=== PATIENT | male | born 2000 | race Caucasian/White ===

== ENCOUNTER 2023-07-28 14:05 | Emergency (ER) | payer BC, SELFPAY ==
[2023-07-28 14:09] VITALS: BP 136/85; PULSE 87; RESP 20; TEMP 37.1; O2SAT 100
--- NOTE | 2023-07-28 16:12 | ED.GENADULT ---
HPI - General Adult General Chief complaint: Unspecified Stated complaint: Pain to right side Time Seen by Provider: 07/28/23 15:55 History of Present Illness HPI narrative: 23-year-old male presenting to the emergency department for evaluation right flank pain. Patient reports that he had a prior workup including imaging and labs that showed nothing was wrong. Patient states the symptoms have been going on for the last few months. Patient felt that his right flank was more swollen today, he called his primary care physician and was deferred to the emergency department for evaluation. Related Data Allergies Allergy/AdvReac Type Severity Reaction Status Date / Time No Known Allergies Allergy Verified 07/28/23 14:07 Review of Systems Review of Systems: All systems reviewed & are unremarkable except as noted in HPI and below Exam Narrative: APPEARANCE: Well appearing, no pain, no distress, well-nourished. HEAD: normocephalic, atraumatic. EYES: PERRLA/EOMI, conjunctivae clear. NOSE: Normal no drainage EARS:TMS clear with good light reflex. THROAT: Pharynx clear, no exudate. NECK: Supple. No adenopathy, no masses. RESPIRATORY: Airway patent, respirations nonlabored. Clear to auscultation bilaterally, no rales, rhonchi, wheezing. CARDIOVASCULAR: Regular rate and rhythm without murmurs rubs or gallops. ABDOMINAL: Soft, nontender, nondistended, normal bowel sounds. no right CVA a right upper quadrant tenderness to palpation MUSCULOSKELETAL: Moves all extremities. Strength/ROM intact, No edema, No calf tenderness. NEURO: Alert. Cranial nerves II through XII intact. Grossly intact SKIN: Warm, dry. Normal Color Course Course Emergency Course: 23-year-old male presents the emergency department for evaluation of right flank pain. Patient has had previous imaging that showed no acute abnormality. Patient is afebrile with no leukocytosis and a stable hemoglobin. Patient has no significant abnormalities on his CMP. UA shows no evidence of infection. Patient was encouraged of close follow-up with his primary care physician for additional outpatient workup. Vital Signs Vital signs: Vital Signs Temperature 98.7 F 07/28/23 14:09 Pulse Rate 87 07/28/23 14:09 Respiratory Rate 20 07/28/23 14:09 Blood Pressure 136/85 07/28/23 14:09 Pulse Oximetry 100 07/28/23 14:09 Oxygen Delivery Room Air 12/07/23 14:09 Temperature 98.7 F 07/28/23 14:09 Pulse Rate 87 07/28/23 14:09 Respiratory Rate 20 07/28/23 14:09 Blood Pressure 136/85 07/28/23 14:09 Pulse Oximetry 100 07/28/23 14:09 Oxygen Delivery Room Air 07/28/23 14:09 Medical Decision Making Differential Diagnosis Differential Diagnosis: biliary colic, UTI, kidney stone, muscular strain Vital Signs Vital Signs: Vital Signs Temperature 98.7 F 07/28/23 14:09 Pulse Rate 87 07/28/23 14:09 Respiratory Rate 20 07/28/23 14:09 Blood Pressure 136/85 07/28/23 14:09 Pulse Oximetry 100 07/28/23 14:09 Oxygen Delivery Room Air 07/28/23 14:09 Temperature 98.7 F 07/28/23 14:09 Pulse Rate 87 07/28/23 14:09 Respiratory Rate 20 07/28/23 14:09 Blood Pressure 136/85 07/28/23 14:09 Pulse Oximetry 100 07/28/23 14:09 Oxygen Delivery Room Air 07/28/23 14:09 Lab Data Lab results reviewed: Yes I reviewed the patient's lab results. 07/28/23 16:23 07/28/23 16:23 Labs: Lab Results 07/28/23 07/28/23 Range/Units 16:06 16:23 WBC 5.3 (4.5-10.0) K/mm3 RBC 5.92 (4.6-6.20) M/mm3 Hgb 16.0 (14.0-18.0) g/dL Hct 48.8 (42.0-52.0) % MCV 82.4 (80-100) fl MCH 27.0 (26-34) pg MCHC 32.8 (32-36) g/dl RDW 12.2 (11.5-14.5) % Plt Count 179 (150-375) k/mm3 MPV 11.7 H (7.4-10.4) fl Immature Gran % (Auto) 0.0 (0-0.5) % Neut % (Auto) 65.9 (45.5-73.1) % Lymph % (Auto) 24.5 (18.3-44.2) % [place] % (Auto) 6.7 (2.6-8.5) % Eos % (Auto)
[2023-07-28 16:17] LABS: Appearance Urine Clear (Clear); Bilirubin Urine Negative (Negative); Blood Urine Negative (Negative); Color Urine Yellow (Yellow); Glucose Urine UA Negative (Negative); Ketones Urine Negative (Negative); Leukocyte Esterase Ur Negative LEU/UL (Negative); Nitrate Urine Negative (Negative); Protein Urine Negative (Negative); Urobilinogen Urine 0.2 mg/dL (<2.0)
[2023-07-28 16:24] LABS: Add Urine Microscopic? NO
[2023-07-28 16:57] LABS: Alanine Aminotransferase 63 U/L (6-50); Albumin Level 5.4 g/dL (3.5-5.1); Alkaline Phosphatase 97 U/L (38-126); Anion Gap 11 mmol/L (8-16); Aspartate Amino Transferase 43 U/L (17-59); Bilirubin,Total 0.7 mg/dL (0.2-1.3); Blood Urea Nitrogen 18 mg/dL (9-20); Calcium 9.8 mg/dL (8.4-10.2); Carbon Dioxide 27 mmol/L (22-30); Chloride 103 mmol/L (98-107); Estimated CRCL calculation 119 ml/min; Estimated Glomerular Filt Rate > 60; Glucose 91 mg/dL (65-110); Lipase 89 U/L (23-300); Sodium 141 mmol/L (137-145)
[2023-07-28 17:03] LABS: Basophils Percent Auto 0.7 % (0.2-1.2); Eosinophils Absolute Auto 0.1 K/mm3 (0-0.3); Eosinophils Percent Auto 2.2 % (0-4.4); Hematocrit 48.8 % (42.0-52.0); Lymphocytes Absolute Auto 1.31 K/mm3 (0.9-3.2); Lymphocytes Percent Auto 24.5 % (18.3-44.2); Mean Corpuscular HGB Conc 32.8 g/dl (32-36); Mean Corpuscular Volume 82.4 fl (80-100); Mean Platelet Volume 11.7 fl (7.4-10.4); Monocytes Absolute Auto 0.4 K/mm3 (0.1-0.6); Monocytes Percent Auto 6.7 % (2.6-8.5); Neutrophils Absolute Auto 3.5 K/mm3 (1.3-6.7); Neutrophils Percent Auto 65.9 % (45.5-73.1); Platelet Count Result 179 k/mm3 (150-375); Red Blood Count 5.92 M/mm3 (4.6-6.20); Red Cell Distribution Width 12.2 % (11.5-14.5); White Blood Count 5.3 K/mm3 (4.5-10.0)
== END 2023-07-28 17:38 | disposition home or self-care (01) ==
PROVIDERS: Emergency Medicine; Emergency Provider Emergency Medicine
DX: R10.9 Unspecified abdominal pain (principal)
CPT/HCPCS: 36415; 80053; 81003; 83690; 85025; 99283

== ENCOUNTER → 2023-08-31 08:44 | Outpatient (CLI) | payer BC, SELFPAY ==
--- NOTE | ~2023-08-31 | US_ITS ---
Abdominal Sonogram: Real-time sonographic imaging of the abdomen was performed. Clinical History: Abdominal pain Findings: The liver appears normal with no evidence of mass lesion or bile duct dilatation. Main por michaelle vein demonstrates normal direction of flow. The spleen is upper limits of normal in size without evidence of focal lesion. The gallbladder is well distended, and appears normal with no evidence of gallstone or wall thickening. The common bile duct measures 3 mm. The pancreas is obscured by bowel gas shadowing. The right kidney measures 9.7 cm in length and the left kidney measures 10.1 cm. The re is no hydronephrosis or renal calculus. Impression: No significant abnormality seen. Borderline splenomegaly. Reviewed, dictated and finalized at [facility]. NG [employer] Impression: No significant abnormality seen. Borderline splenomegaly.
== END ==
PROVIDERS: PCP Physician Assistant; Visit Provider Physician Assistant
DX: R10.9 Unspecified abdominal pain (principal)
CPT/HCPCS: 76700

== ENCOUNTER 2024-02-21 10:12 | Outpatient (CLI) | payer BC, SELFPAY ==
--- NOTE | ~2024-02-21 | XR_ITS ---
EXAMINATION: XR hip RT min 2V DATE: 02/21/2024 10:32 INDICATION: Right hip pain TECHNIQUE: Anteroposterior and frog-leg lateral views of the right hip were obtained. COMPARISON: None. FINDINGS: Bone alignment is normal. No fracture or suspected avascular necrosis. Right hip and bilateral sacroi liac joint spaces are normal. Sclerotic bone island at the right posterior iliac spine. IMPRESSION: 1. Sclerotic likely bone island at the right posterior iliac spine. Otherwise normal right hip radiog raphs. Reviewed, dictated and finalized at location B. IMPRESSION: 1. Sclerotic likely bone island at the right posterior iliac spine. Otherwise n ormal right hip radiographs.
--- NOTE | ~2024-02-21 | XR_ITS ---
EXAMINATION: XR knee RT 3V DATE: 02/21/2024 10:32 INDICATION: Right knee pain TECHNIQUE: Standing AP, lateral and sunrise views of the right knee were obtained COMPARISON: None. FINDINGS: Alignment is normal. No fracture. Joint spaces are normal with no erosions or osteophytosis. No join t effusion/layering lipohemarthrosis. Soft tissues are unremarkable. IMPRESSION: 1. Normal right knee radiographs. Reviewed, dictated and finalized at location B.
== END 2024-02-21 10:13 ==
PROVIDERS: PCP Physician Assistant; Visit Provider Physician Assistant
DX: M25.561 Pain in right knee (principal); M25.551 Pain in right hip
CPT/HCPCS: 73502; 73562

== ENCOUNTER 2024-05-23 09:54 | Outpatient (CLI) | payer BC, SELFPAY ==
--- NOTE | ~2024-05-23 | US_ITS ---
EXAMINATION: US_ABDRLQ_US DATE: 05/23/2024 10:11 INDICATION: Right lower quadrant abdominal pain. TECHNIQUE: Multiple grayscale and Doppler ultrasound images of the abdomen were obtained. COMPARISON: None FINDINGS: The appendix is not identified. IMPRESSION: 1. Appendix not identified. Reviewed, dictated and finalized at location A. IMPRESSION: 1. Appendix not identified.
== END 2024-05-23 09:55 | disposition home or self-care (01) ==
PROVIDERS: PCP Physician Assistant; Visit Provider Physician Assistant
DX: R10.9 Unspecified abdominal pain (principal)
CPT/HCPCS: 76705

== ENCOUNTER 2024-07-03 07:41 | Outpatient (CLI) | payer BC, SELFPAY ==
--- NOTE | ~2024-07-03 | CT_ITS ---
EXAMINATION: CT abdomen pelvis w con DATE: 07/03/2024 09:02 INDICATION: Right lower quadrant abdominal pain TECHNIQUE: Computed tomography (CT) of the abdomen and pelvis was performed with 100 mL Omnipaque-350 intravenous contrast. Automated exposure control and iterative reconstruction technique were employe d. The dose-length product was 551.84 mGy-cm. COMPARISON: None FINDINGS: Lung bases are clear. Heart size is normal. No pericardial or pleural effusion. Liver,, gallbladder, spleen, pancreas, bilateral adrenal glands and right kidney are normal. 1 cm cyst at the lower pole o f the left kidney. Bladder is normal. Bowels including the appendix are normal. No free intraperitone al gas or fluid. No pathologically enlarged abdominal or pelvic lymphadenopathy. Mild thoracolumbar l evoscoliosis with mild spondylosis. IMPRESSION: 1. No acute intra-abdominal/pelvic process. Specifically the gallbladder and appendix are normal. Reviewed, dictated and finalized at location B. WARDEN IMPRESSION: 1. No acute intra-abdominal/pelvic process. Specifically the gallbladder and ap pendix are normal.
== END 2024-07-03 07:42 | disposition home or self-care (01) ==
PROVIDERS: PCP Physician Assistant; Visit Provider Nurse Practitioner Family
DX: R10.31 Right lower quadrant pain (principal)
CPT/HCPCS: 74177; Q9967

== ENCOUNTER 2024-07-04 01:20 | Day surgery (SDC) | payer BC, SELFPAY ==
[2024-06-21 14:06] VITALS: BMI 27.6
[2024-07-04 11:50] VITALS: BP 133/82; PULSE 78; RESP 20; TEMP 36.7; O2SAT 100; BMI 27.6
[2024-07-04] MEDS: LACTATED RINGERS 1,000 ML 150 ML IV CONT (12:15)
--- NOTE | 2024-07-04 13:53 | P.PNAN_ITS ---
Anes - Initial Pre Proc Eval Procedure: Operation Date: 07/04/24 13:00 Proposed Procedures p Esophagogastroduodenoscopy & Colonoscopy - Az Huerta MD Date/Time: 07/04/24 13:53 Surgeon: Az Huerta MD Pre Op Diagnosis: GERD, Nausea, Rt lower quad pain Patient Data Age: 24 Gender: M Height: 1.8 m Weight: 89.9 kg Last Vital Signs Temp 36.7 C 07/04/24 11:50 Pulse 78 07/04/24 11:50 Resp 20 07/04/24 11:50 BP 133/82 07/04/24 11:50 Pulse Ox 100 07/04/24 11:50 O2 Del Method Room Air 07/04/24 11:50 Allergies Allergy/AdvReac Type Severity Reaction Status Date / Time No Known Allergies Allergy Verified 06/14/24 13:04 Home Medications Medication Instructions Recorded Confirmed Type pantoprazole 40 mg tablet,delayed 40 mg PO QAM 8 weeks #56 tabs 06/14/24 07/04/24 Rx release folic acid 1 mg tablet 1 mg PO DAILY 06/21/24 07/04/24 History Patient hx anesthesia problems: none Family hx anesthesia problems: none Results Review: All pre-operative results and documents have been reviewed as part of the pre- operative evaluation. [facility] Past Medical History Medical History GERD (gastroesophageal reflux disease) Nausea Right lower quadrant pain Social History Social History Smoking status: Never smoker Alcohol intake: current Drinks per week: 8 Substance use type: does not use Living arrangements: with family Spiritual care concerns: No Anes - Eval Final PreProcedure Day of Procedure 07/04/24 13:53 Patient weight: overweight Heart: regular rate and rhythm Lungs: clear to auscultation Airway: Mallampati scale class III Neurological: alert and oriented Last oral intake: >/= 8 hours ASA classification: II Emergent: no Anesthetic plan: proceed Anesthesia type and monitoring: general GIVS and standard monitoring Results Review: All pre-operative results and documents have been reviewed as part of the pre- operative evaluation. Informed Consent: The patient's anesthetic plan and its attendant risks and benefits were discussed with the patient/family/POA. Questions were solicited and answers provided to the satisfaction of the patient/family/POA.
--- NOTE | 2024-07-04 13:53 | PM.IMHP ---
H&P: HPI History of Present Illness Date/Time: 07/04/24 13:53 Chief Complaint: Abdominal pain Narrative: the patient has almost constant abdominal pain for the past 5 years, having tried multiple medications including neuro modulators, muscle relaxants, Omeprazole and gabapentin with no relief. The pain has a component in the right lower quadrant radiated to the right leg, and also epigastric pain component. He has had extensive workup including stool calprotectin and cross-sectional imaging of the abdomen, all within normal limits. He is referred for colonoscopy and EGD. Review of Systems Review of Systems: All systems reviewed & are unremarkable except as noted in HPI and below [facility] Past Medical History Medical History (Updated 06/14/24 @ 13:43 by DERICK Abbasi) GERD (gastroesophageal reflux disease) Nausea Right lower quadrant pain Social History Social History Smoking status: Never smoker Alcohol intake: current Drinks per week: 8 Substance use type: does not use Living arrangements: with family Spiritual care concerns: No Meds Home Medications and Allergies Home Medications Medication Instructions Recorded Confirmed Type pantoprazole 40 mg tablet,delayed 40 mg PO QAM 8 weeks #56 tabs 06/14/24 07/04/24 Rx release folic acid 1 mg tablet 1 mg PO DAILY 06/21/24 07/04/24 History Allergies Allergy/AdvReac Type Severity Reaction Status Date / Time No Known Allergies Allergy Verified 06/14/24 13:04 Vital Signs Vital Signs - 24 hr 07/04/24 11:50 Temperature 98.1 F Pulse Rate 78 Respiratory Rate 20 Blood Pressure 133/82 Pulse Oximetry 100 Oxygen Delivery Room Air Exam Const: General: cooperative and healthy appearing Resp: Effort & Inspection: normal respiratory effort and able to speak in complete sentences Auscultation: clear to auscultation bilaterally Cardio: Rate: regular rate Rhythm: regular rhythm GI: Inspection: normal to inspection GI Palp: No No hepatosplenomegaly present Auscultation: normal bowel sounds Rectal Exam: deferred Skin: General skin exam: normal color Psych: Appearance: grossly normal Mental Status: mental status grossly normal Assessment and Plan Assessment and plan (1) GERD (gastroesophageal reflux disease): Code(s): K21.9 - Gastro-esophageal reflux disease without esophagitis Status: Acute Assessment and Plan: Will perform EGD. The patient is deemed a good candidate for the procedure. Consent signed. Will proceed. (2) Right lower quadrant pain: Code(s): R10.31 - Right lower quadrant pain Status: Acute Assessment and Plan: Will perform colonoscopy. The patient is deemed a good candidate for the procedure. Consent signed. Will proceed. (3) Nausea: Code(s): R11.0 - Nausea Status: Acute
--- NOTE | 2024-07-04 14:06 | SUR.OPER ---
EGD: [id number] COLONOSCOPY: [id number]
[2024-07-04] MEDS: SIMETHICONE ORAL SUSPENSION 20 MG/0.3 ML 30 ML BOTTLE 0.6 ML IRRIGATION (14:07)
[2024-07-04 14:38] VITALS: BP 112/74; PULSE 70; RESP 21; O2SAT 98
[2024-07-04 14:48] VITALS: BP 111/66; PULSE 65; RESP 17; O2SAT 100
[2024-07-04 14:58] VITALS: BP 125/79; PULSE 78; RESP 22; O2SAT 100
== END 2024-07-04 15:19 | disposition home or self-care (01) ==
PROVIDERS: PCP Physician Assistant; Referring Provider Nurse Practitioner Family; Visit Provider Internal Medicine Gastroenterology
PROC: 0DJ08ZZ Inspection of Upper Intestinal Tract, Via Natural or Artificial Opening Endoscopic (ICD-10-PCS; CPT 43235; principal; 2024-07-04 13:00)
DX: K29.30 Chronic superficial gastritis without bleeding (principal); K21.9 Gastro-esophageal reflux disease without esophagitis
CPT/HCPCS: 45380; 43239; 88305; J2003; J2704; J7120

== ENCOUNTER 2024-09-27 08:18 | Outpatient (CLI) | payer BC, SELFPAY ==
--- NOTE | ~2024-09-27 | NM_ITS ---
EXAMINATION: NM hepatobiliary wo pharm DATE: 09/27/2024 10:58 INDICATION: Right lower quadrant. COMPARISON: None. TECHNIQUE: 5.2 mCi Tc-99m mebrofenin (Choletec) was administered intravenously. Scintigraphic images of the abdomen were obtained for one hour. At the 1 hour time point, the patient drank 8 oz Ensure, and imaging was continued for 60 minutes. Gallbladder ejection fraction was calculated by the technol ogist. FINDINGS: There is normal clearance of radiotracer from the blood pool. There is homogeneous tracer u ptake by the liver. Activity progresses to the bowel and gallbladder. The gallbladder ejection fract ion (GBEF) is 75%. Note that with this technique, normal GBEF >= 33%. IMPRESSION: 1. Normal hepatobiliary scan. Reviewed, dictated and finalized at location A. [facility]
--- OUTSIDE RECORDS SUMMARY | 2024-09-27 08:25 | XMS_ITS | Referral Summary ---
Author Organization [facility] Address [address] [place] [id number] Care Team Providers Care Public Policy Professor Name Role Phone Danii Keller DNP Primary Care Provi harper Encounters Date Type Department Care Team Description 09/25/2024 12:45 PM WATER PROJECT ENGINEER Lab [facility] [address] [place] [address] Encounter for vitamin deficiency screening; Encounter for long-term (current) use of medications; Thyroid disorder screen; Lipid screening; Screening for diabetes mellitus 09/18/2024 2:00 PM WATER PROJECT ENGINEER Office Visit [facility] [address] [place] [phone] Danii Keller DNP Encounter to establish care (Primary Dx); Sleep disorder; Gastroesophageal reflux disease without esophagitis; Right lower quadrant abdominal pain; Screening for diabetes mellitus; Lipid screening; Thyroid disorder screen; Depression screen; Encounter for vitamin deficiency screening; Encounter for long-term (current) use of medications 09/13/2024 [facility]phone [facility] [address] [place] [phone] Ana Gauthier RN from Last 3 Months Allergies No known active allergies Medications traZODone (DESYREL) 50 mg tablet TAKE 1 TABLET BY MOUTH EVERY DAY AT DINNER FOR DIFFICULTY SLEEPING 5 Active omeprazole (PriLOSEC) 20 mg capsule Take 1 capsule (20 mg total) by mouth daily 5 Active Active Problems Problem Noted Date Diagnosed Date Sleep disorder 09/23/2024 Assessment & Plan (09/23/2024 8:33 PM WATER PROJECT ENGINEER): Refer to sleep Medicine Currently on trazodone 50 mg nightly GERD (gastroesophageal reflux disease) Assessment & Plan (09/23/2024 8:32 PM WATER PROJECT ENGINEER): Chronic and stable on omeprazole 20 mg daily Recurrent major depressive disorder 09/18/2024 Bipolar 1 disorder 09/18/2024 PAULINA (generalized anxiety disorder) 09/18/2024 Right lower quadrant abdominal pain 09/18/2024 Assessment & Plan (09/23/2024 8:31 PM WATER PROJECT ENGINEER): Chronic Managed by GI at [facility] 09/18/2024 Immunizations Name Administration Dates Next Due Influenza, Quadrivalent, Spl it, Intramuscular 08/02/2023 Influenza, Unspecified 09/18/2024(Deferred: Pricilla ent Refused) Social History Tobacco Use Types Packs/Day Years Used Date Smoking Tobacco: Never Smokeless Tobacco: Never Tobacco Cessation:Counseling Given: Not Answered AUDIT-C Answer Date Recorded Q1: How often do you have a drink containing alc ohol? 2-3 times a week 09/18/2024 Q2: How many drinks containi ng alcohol do you have on a typical day when you are drinking? 1 or 2 09/18/2024 Q3: How often do you have si x or more drinks on one occasion? Never 09/18/2024 PHQ-2 Answer Date Recorded PHQ-2 Total Score (If total score is 3 or more points, staff should administer the PHQ-9) 2 09/18/2024 Sex and Gender Information Value Date Recorded Sex Assigned at Not on file Legal Sex Male 12:01 PM WATER PROJECT ENGINEER Gender Identity Male 09/24/2024 8:42 AM WATER PROJECT ENGINEER Sexual Orientation Choose not to disclose 2024 8:42 AM WATER PROJECT ENGINEER Last Filed Vital Signs Vital Sign Reading Time Taken Comments Blood Pressure 128/80 09/18/2024 1:38 PM WATER PROJECT ENGINEER Pulse 85 09/18/2024 1:38 PM WATER PROJECT ENGINEER Temperature - - Respiratory Rate 18 09/18/2024 1:38 PM WATER PROJECT ENGINEER Oxygen Saturation 98% 09/18/2024 1:38 PM WATER PROJECT ENGINEER Inhaled Oxygen Concentration - - Weight 91.9 kg (202 lb 9.6 oz) 09/18/2024 1:38 P M WATER PROJECT ENGINEER Height 180.3 cm (5' 11 ) 09/18/2024 1:38 PM WATER PROJECT ENGINEER Body Mass Index 28.26 09/18/2024 1:38 PM WATER PROJECT ENGINEER Plan of Treatment Not on file Procedures Procedure Name Priority Date/Time Associated Diagnosis Comments EGFR Routine 09/25/2024 12:51 PM WATER PROJECT ENGINEER Encounter for long-term (current) use of medications DIFFERENTIAL AUTO Routine 09/25/2024 12: 51 PM WATER PROJECT ENGINEER Screening for diabetes mellitus Encounter for long-term (current) use of medications CBC WITH AUTO DIFFERENTIAL Routine 09/25/2024 12:51 PM WATER PROJECT ENGINEER Screening for diabetes mellitus Encounter for long-term (current) use of medications COMPREHENSIVE METABOLIC PANEL Routine 09/25/2024 12:51 PM WATER PROJECT ENGINEER Encounter for long-term (current) use of medications HEMOGLOBIN A1C Routine 09/25/2024 12:51 PM WATER PROJECT ENGINEER Screening for diabetes mellitus Encounter for long-term (current) use of medications LIPID PANEL Routine 09/25/2024 12:51 PM WATER PROJECT ENGINEER Lipid screening Encounter for long-term (current) use of medications THYROID FUNCTION CASCADE Routine 09/25/2024 12:51 PM WATER PROJECT ENGINEER Thyroid disorder screen Encounter for long-term (current) use of medications VITAMIN D 25 HYDROXY Routine 09/25/2024 12:51 PM WATER PROJECT ENGINEER Encounter for vitamin deficiency screening Encounter for long-term (current) use of medications URINALYSIS AND REFLEX TO MICROSCOPIC AND CULTURE Routine 09/25/2024 12:46 PM WATER PROJECT ENGINEER Encounter for long-term (current) use of medications from Last 3 Months Results * eGFR (09/25/2024 12:51 PM WATER PROJECT ENGINEER) eGFR >90 >=60 mL/min/1. 73 m2 Comment: Interpretive Data Reference Interval Normal >/= 90 mL/min/1.73m2 Mildly decreased* 60 - 89 mL/min/1.73m2 Mildly to moderately decreased 45 - 59 mL/min/1.73m2 Moderately to severely decreased 30 - 44 mL/min/1.73m2 Severely decreased 15 - 29 mL/min/1.73m2 Kidney Failure < 15 mL/min/1.73m2 *Relative to young adult level Estimated glomerular filtration rate is determined by the 2020 CKD-EPI equation recommended by the National Kidney Foundation (A Unifying Approach to GFR Estimation: Recommendations of the NKF-ASK Task Force on Reassessing the Inclusion of Race in Diagnosing Kidney Disease, JASN 202). The CKD-EPI equation should not be used for patients with unstable renal function and has not been validated in children and those over 70. Current interpretive data was last reviewed 2021. Blood 09/25/2024 12:5 1 PM WATER PROJECT ENGINEER 09/25/2024 12:58 PM WATER PROJECT ENGINEER us Danii Avashiv Keller [facility] BLOOD ORDERABLE S Final Result [place] [id number] [facility] Department [place] [address] * Differential, auto (09/25/2024 12:51 PM WATER PROJECT ENGINEER) Pathologist [facility] Neutrophil abs 1.9 1.5 - 6.5 K/cumm Imm gran abs 0.0 0.0 - 0.1 K/cumm [facility] Lymphocyte abs 1.7 0.8 - 3.3 K/cumm [facility] Monocyte abs 0.5 0.2 - 0.8 K/cumm [facility] Eosinophil abs 0.1 0.0 - 0.5 K/cumm [facility] Basophil abs 0.0 0.0 - 0.1 K/cumm [facility] Neutrophil pct 45.0 % [facility] Comment: Interpretive Data Percent cell count reference ranges are not reported, since discordance with absolute values may lead to misinterpretation of CBC data. Current Interpretive Data was last revised on 2017. Imm gran pct 0.2 % [facility] Comment: Interpretive Data Percent cell count reference ranges are not reported, since discordance with absolute values may lead to misinterpretation of CBC data. Current Interpretive Data was last revised on 2017. Lymphocyte pct 39.2 % [facility] Comment: Interpretive Data Percent cell count reference ranges are not reported, since discordance with absolute values may lead to misinterpretation of CBC data. Current Interpretive Data was last revised on 2017. Monocyte pct 11.6 % [facility] Comment: Interpretive Data Percent cell count reference ranges are not reported, since discordance with absolute values may lead to misinterpretation of CBC data. Current Interpretive Data was last revised on 2017. Eosinophil pct 3.1 % [facility] Comment: Interpretive Data Percent cell count reference ranges are not reported, since discordance with absolute values may lead to misinterpretation of CBC data. Current Interpretive Data was last revised on 2017. Basophil pct 0.9 % [facility] Comment: Interpretive Data Percent cell count reference ranges are not reported, since discordance with absolute values may lead to misinterpretation of CBC data. Current Interpretive Data was last revised on 2017. Blood 09/25/2024 12:5 1 PM WATER PROJECT ENGINEER 09/25/2024 12:58 PM WATER PROJECT ENGINEER [facility] S Final Result Performing Organization Address [facility] Co de Phone Number [address] [place] [address] * Thyroid Function Gillespie (09/25/2024 12:51 PM WATER PROJECT ENGINEER) TSH 1.32 0.30 - 4.20 mcIUnit/mL Blood 09/25/2024 12:5 1 PM WATER PROJECT ENGINEER 09/25/2024 12:58 PM WATER PROJECT ENGINEER [facility]ii [facility] S Final Result Performing Organization Address [facility] Co de Phone Number [address] [place] [address] * (ABNORMAL) CBC with auto differential (09/25/2024 12:51 PM WATER PROJECT ENGINEER) [facility] WBC 4.2 3.8 - 9.9 K/cumm Hgb 15.9 13.0 - 17.5 g/dL [facility] Hct 46.9 38.9 - 50.3 % [facility] Plt 129(L) 150 - 400 K/cumm [facility] MPV 11.2 9.1 - 12.3 fL [facility] RBC 5.68 4.30 - 5.80 M/cumm [facility] MCV 82.6 81.3 - 96.4 fL [facility] MCH 28.0 27.1 - 33.3 pg [facility] MCHC 33.9 32.3 - 35.7 g/dL [facility] RDW CV 12.6 11.1 - 14.9 % [facility] RDW SD 37.7 35.7 - 48.1 fL [facility] NRBC abs 0.00 0.00 - 0.01 K/cumm [facility] Blood 09/25/2024 12:5 1 PM WATER PROJECT ENGINEER 09/25/2024 12:58 PM WATER PROJECT ENGINEER Danii Keller [facility] BLOOD ORDERABLE S Final Result [address] [place] [address] * (ABNORMAL) Vitamin D 25 hydroxy (09/25/2024 12:51 PM WATER PROJECT ENGINEER) [facility] Vitamin D 25-OH 26.0(L) 30.0 - 80.0 ng/mL Blood 09/25/2024 12:5 1 PM WATER PROJECT ENGINEER 09/25/2024 12:58 PM WATER PROJECT ENGINEER Danii Keller [facility] BLOOD ORDERABLE S Final Result [address] [place] [address] * (ABNORMAL) Hemoglobin A1c (09/25/2024 12:51 PM WATER PROJECT ENGINEER) Hgb A1C 5.8(H) 4.0 - 5.6 % Estimated Average Glucose 120 mg/dL [facility] Comment: The ADA recommends reporting an estimated Average Glucose (eAG) with all Hemoglobin A1c results using the equation derived from a study of 507 normal and diabetic adults. Minority populations were underrepresented and children were not included. (Diabetes Care 31:4071-6474, 2008). The eAG is not equivalent to a fasting glucose. Blood 09/25/2024 12:5 1 PM WATER PROJECT ENGINEER 09/25/2024 12:58 PM WATER PROJECT ENGINEER us Danii Keller [facility] BLOOD ORDERABLE S Final Result [facility] [address] [facility] Department [place] [address] * (ABNORMAL) Lipid panel (09/25/2024 12:51 PM WATER PROJECT ENGINEER) Cholesterol 211(H) 30 - 199 mg/dL Comment: Interpretive Data Ages < or = 19 years Acceptable: <170 mg/dL Borderline high: 170-199 mg/dL High: >or= 200 mg/dL Ages > or = 20 years Desirable: <200 mg/dL Borderline high: 200-239 mg/dL High: >or= 240 mg/dL Literature References: 1. Expert Panel on Integrated Guidelines for Cardiovascular Health and Risk Reduction in Children and Adolescents. Pediatrics 2011;128:S213 2. NCEP Expert Panel. Circulation 2004;110:227 Current Interpretive Data was last revised on 2018. Triglycerides 102 <=149 mg/dL [facility] Comment: Interpretive Data Ages < or = 9 years Acceptable: <75 mg/dL Borderline high: 75-99 mg/dL High: >or= 100 mg/dL Ages 10 to 20 years Acceptable: <90 mg/dL Borderline high: 90-129 mg/dL High: >or= 130 mg/dL Ages > or = 20 years Desirable: <150 mg/dL Borderline high: 150-199 mg/dL High: 200-499 mg/dL Very high: >or= 499 mg/dL Literature References: 1. Expert Panel on Integrated Guidelines for Cardiovascular Health and Risk Reduction in Children and Adolescents. Pediatrics 2011;128:S213 2. NCEP Expert Panel. Circulation 2004;110:227 Current Interpretive Data was last revised on 2018. HDL 56 >=40 mg/dL [facility] Comment: Interpretive Data Ages < or = 19 years Acceptable: >45 mg/dL Borderline low: 40-45 mg/dL Low: <40 mg/dL Ages > or = 20 years Desirable: >or= 60 mg/dL Low: <40 mg/dL Literature References: 1. Expert Panel on Integrated Guidelines for Cardiovascular Health and Risk Reduction in Children and Adolescents. Pediatrics 2011;128:S213 2. NCEP Expert Panel. Circulation 2004;110:227 Current Interpretive Data was last revised on 2018. LDL, calculated 137(H) <=129 mg/dL [facility] Comment: Interpretive Data Ages < or = 19 years Acceptable: <110 mg/dL Borderline high: 110-129 mg/dL High: >or= 130 mg/dL Ages > or = 20 years Optimal: <100 mg/dL Near optimal: 100-129 mg/dL Borderline high: 130-159 mg/dL High: >160 mg/dL Calculated using the Lawrence LDL-C estimating equation. This equation was implemented on 2024. Prior to this date LDL-C was estimated using the Friedewald equation. Literature References: 1. Expert Panel on Integrated Guidelines for Cardiovascular Health and Risk Reduction in Children and Adolescents. Pediatrics 2011;128:S213 2. NCEP Expert Panel. Circulation 2004;110:227 3. Lawrence Rousseau et al. CORNELIUS Cardiol. 2019December 20;5(5):540-548. doi: 10.1001/jamacardio.2020.0013 Current Interpretive Data was last revised on 2024. Non-HDL Cholesterol 155 mg/dL [facility] Comment: Interpretive Data Ages < or = 19 years Acceptable: <120 mg/dL Borderline high: 120-144 mg/dL High: >145 mg/dL Ages > or = 20 years When triglycerides are >200 mg/dL, Non-HDL cholesterol is a secondary target of therapy with treatment goals that are 30 mg/dL greater than the LDL cholesterol target. Literature References: 1. Expert Panel on Integrated Guidelines for Cardiovascular Health and Risk Reduction in Children and Adolescents. Pediatrics 2011;128:S213 2. NCEP Expert Panel. Circulation 2004;110:227 Current Interpretive Data was last revised on 2018. Chol/HDL ratio 4 [facility] Blood 09/25/2024 12:5 1 PM WATER PROJECT ENGINEER 09/25/2024 12:58 PM WATER PROJECT ENGINEER Danii Keller [facility] BLOOD ORDERABLE S Final Result [facility] [address] [facility] Department [place] [address] * Comprehensive metabolic panel (09/25/2024 12:51 PM WATER PROJECT ENGINEER) Sodium 139 135 - 145 mmol/L Potassium, pl 4.5 3.3 - 4.9 mmol/L [facility] Chloride 101 97 - 110 mmol/L [facility] CO2 27 22 - 32 mmol/L [facility] Anion gap 11 2 - 15 mmol/L [facility] BUN 17 6 - 25 mg/dL [facility] Creatinine 1.04 0.80 - 1.30 mg/dL [facility] Glucose 94 70 - 199 mg/dL [facility] Comment: Interpretive Data Fasting glucose >/= 126 mg/dl is diagnostic for diabetes. Fasting is defined as no caloric intake for at least 8 hours. Fasting glucose between 100 mg/dl to 125 mg/dl is diagnostic of prediabetes. In a patient with classic symptoms of hyperglycemia or hyperglycemic crisis, a random glucose >/= 200 mg/dl is diagnostic for diabetes. In the absence of unequivocal hyperglycemia, results should be confirmed by repeat testing. The classification and Diagnosis of Diabetes Diabetes Care 2021; 46: S19-S40. Current interpretive data was last revised 2022. Calcium 9.7 8.5 - 10.3 mg/dL [facility] Bilirubin, total 0.6 0.1 - 1.2 mg/dL [facility] Protein, pl 7.9 6.5 - 8.5 g/dL [facility] Albumin 4.6 3.5 - 5.0 g/dL [facility] Alk phos 99 40 - 130 Units/L [facility] ALT 45 7 - 55 Units/L [facility] AST 31 10 - 50 Units/L [facility] Blood 09/25/2024 12:5 1 PM WATER PROJECT ENGINEER 09/25/2024 12:58 PM WATER PROJECT ENGINEER Danii Keller [facility] BLOOD ORDERABLE S Final Result Performing Organization Address City/[facility]/ZIP Co de Phone Number [facility] [place] [address] * Urinalysis reflex to microscopic and culture Urine, clean voided (09/25/2024 12:46 PM WATER PROJECT ENGINEER) Color, ur Yellow Yellow Clarity, ur Clear Clear [facility] Specific gravity, ur 1.023 1.003 - 1.030 [facility] pH, urine 6.0 [facility] Comment: Interpretive Data U rine pH is affected by diet, medications, systemic acid-base disturbances, and renal tubular function. pH may affect urinary stone formation. For example, urine pH below 6.0 may help reduce the tendency for calcium phosphate stones and pH greater than 6.0 may reduce the tendency for uric acid stone formation. Source: [facility] Current Interpretive Data was last revised on 2017 Protein, ur ql Negative Negative [facility] Glucose, ur ql Negative Negative [facility] Ketones, ur Negative Negative [facility] Bilirubin, ur Negative Negative [facility] Blood, ur Negative Negative [facility] Urobilinogen, ur <2.0 <2.0 mg/dL [facility] Nitrite, ur Negative Negative [facility] Leukocyte esterase, ur Negative Negative [facility] UA reflex comment Reflex conditions for microscopic UA and culture not met. [facility]EL Urine, clean voided 09/25/2024 12:46 PM WATER PROJECT ENGINEER 09/25/2024 1:49 PM WATER PROJECT ENGINEER Narrative [facility] - 09/25/2024 2:00 PM WATER PROJECT ENGINEER Urine Collection Method->Clean Catch Danii Keller [facility] MICROBIOLOGY - GENERAL ORDERABLES Final Result Performing Organization Address [facility]/ZIP Co de Phone Number [facility]0 [facility] [place] [address] from Last 3 Months Insurance [place] Care Teams Public Policy Professor Relationship Specialty Start Date End Date Danii Keller DNP [address] [place] [address] PCP - General Family Medicine 09/18/24
--- OUTSIDE RECORDS SUMMARY | 2024-09-27 08:25 | XMS_ITS | Clinical Summary ---
Author Organization [facility] Address [address] [place] [address] Care Team Providers Care Cloth Coverer Name Role Phone Danii Keller [facility] ([place] [place]) Primary Care Provi harper Allergies No known active allergies Medications traZODone (DESYREL) 50 mg tablet TAKE 1 TABLET BY MOUTH EVERY DAY AT DINNER FOR DIFFICULTY SLEEPING 5 Active omeprazole (PriLOSEC) 20 mg capsule Take 1 capsule (20 mg total) by mouth daily 5 Active Active Problems Problem Noted Date Diagnosed Date Sleep disorder 09/23/2024 Assessment & Plan (09/23/2024 8:33 PM ASSISTANT RESEARCH SCIENTIST): Refer to sleep Medicine Currently on trazodone 50 mg nightly GERD (gastroesophageal reflux disease) Assessment & Plan (09/23/2024 8:32 PM ASSISTANT RESEARCH SCIENTIST): Chronic and stable on omeprazole 20 mg daily Recurrent major depressive disorder 09/18/2024 Bipolar 1 disorder 09/18/2024 PAULINA (generalized anxiety disorder) 09/18/2024 Right lower quadrant abdominal pain 09/18/2024 Assessment & Plan (09/23/2024 8:31 PM ASSISTANT RESEARCH SCIENTIST): Chronic Managed by GI at [facility] Scoliosis 09/18/2024 Encounters Date Type Department Care Team Description 09/25/2024 12:45 PM ASSISTANT RESEARCH SCIENTIST Lab [facility] [address] [place] [address] Encounter for vitamin deficiency screening; Encounter for long-term (current) use of medications; Thyroid disorder screen; Lipid screening; Screening for diabetes mellitus 09/18/2024 2:00 PM ASSISTANT RESEARCH SCIENTIST Office Visit [facility] [address] [place] [phone] Danii Keller DNP Encounter to establish care (Primary Dx); Sleep disorder; Gastroesophageal reflux disease without esophagitis; Right lower quadrant abdominal pain; Screening for diabetes mellitus; Lipid screening; Thyroid disorder screen; Depression screen; Encounter for vitamin deficiency screening; Encounter for long-term (current) use of medications 09/13/2024 Telephone [facility] [address] [place] [address] Ana Gauthier RN from Last 3 Months Immunizations Name Administration Dates Next Due Influenza, Quadrivalent, Spl it, Intramuscular 08/02/2023 Influenza, Unspecified 09/18/2024(Deferred: Pricilla ent Refused) Medical History Medical History Date Comments Depression Anxiety Family History Medical History Relation Name Comments Heart disease Father Breast cancer Maternal Grandmother Breast cancer Mother Schizophrenia Other Relation Name Status Comments Father Maternal Grandmother Mother Other Social History Tobacco Use Types Packs/Day Years [...] on file Legal Sex Male 12:01 PM ASSISTANT RESEARCH SCIENTIST Gender Identity Male 09/24/2024 8:42 AM ASSISTANT RESEARCH SCIENTIST Sexual Orientation Choose not to disclose 2024 8:42 AM ASSISTANT RESEARCH SCIENTIST Obstetrics History Last Filed Vital Signs Vital Sign Reading Time Taken Comments Blood Pressure 128/80 09/18/2024 1:38 PM ASSISTANT RESEARCH SCIENTIST Pulse 85 09/18/2024 1:38 PM ASSISTANT RESEARCH SCIENTIST Temperature - - Respiratory Rate 18 09/18/2024 1:38 PM ASSISTANT RESEARCH SCIENTIST Oxygen Saturation 98% 09/18/2024 1:38 PM ASSISTANT RESEARCH SCIENTIST Inhaled Oxygen Concentration - - Weight 91.9 kg (202 lb 9.6 oz) 09/18/2024 1:38 P M ASSISTANT RESEARCH SCIENTIST Height 180.3 cm (5' 11 ) 09/18/2024 1:38 PM ASSISTANT RESEARCH SCIENTIST Body Mass Index 28.26 09/18/2024 1:38 PM ASSISTANT RESEARCH SCIENTIST Plan of Treatment Health Maintenance Due Date Last Done Comments Hepatitis C Screening 2000 DTaP/Tdap/Td Vaccine (1 - Tdap) 02/21/2011 Varicella Vaccines (1 of 2 - 13+ 2-dose series) 02/21/2013 HPV Vaccines (1 - Male 3-dos e series) 02/21/2015 Hepatitis B Screening 02/21/2018 Regular Well Visit/Exam 18-64 02/21/2018 Influenza Vaccine (#1) 2025 08/02/2023 Postp oned from 04/22/2024 (Patient declined, but will receive in the future) Depression Screening 09/18/2025 09/18/2024 Pneumococcal vaccine <65 Aged Out No longer eligible based on patient's age to complete this topic Procedures Procedure Name Priority Date/Time Associated Diagnosis Comments EGFR Routine 09/25/2024 12:51 PM ASSISTANT RESEARCH SCIENTIST Encounter for long-term (current) use of medications DIFFERENTIAL AUTO Routine 09/25/2024 12: 51 PM ASSISTANT RESEARCH SCIENTIST Screening for diabetes mellitus Encounter for long-term (current) use of medications CBC WITH AUTO DIFFERENTIAL Routine 09/25/2024 12:51 PM ASSISTANT RESEARCH SCIENTIST Screening for diabetes mellitus Encounter for long-term (current) use of medications COMPREHENSIVE METABOLIC PANEL Routine 09/25/2024 12:51 PM ASSISTANT RESEARCH SCIENTIST Encounter for long-term (current) use of medications HEMOGLOBIN A1C Routine 09/25/2024 12:51 PM ASSISTANT RESEARCH SCIENTIST Screening for diabetes mellitus Encounter for long-term (current) use of medications LIPID PANEL Routine 09/25/2024 12:51 PM ASSISTANT RESEARCH SCIENTIST Lipid screening Encounter for long-term (current) use of medications THYROID FUNCTION CASCADE Routine 09/25/2024 12:51 PM ASSISTANT RESEARCH SCIENTIST Thyroid disorder screen Encounter for long-term (current) use of medications VITAMIN D 25 HYDROXY Routine 09/25/2024 12:51 PM ASSISTANT RESEARCH SCIENTIST Encounter for vitamin deficiency screening Encounter for long-term (current) use of medications URINALYSIS AND REFLEX TO MICROSCOPIC AND CULTURE Routine 09/25/2024 12:46 PM ASSISTANT RESEARCH SCIENTIST Encounter for long-term (current) use of medications from Last 3 Months Results * eGFR (09/25/2024 12:51 PM ASSISTANT RESEARCH SCIENTIST) eGFR >90 >=60 mL/min/1. 73 m2 Comment: [...] reviewed 2021. Blood 09/25/2024 12:5 1 PM ASSISTANT RESEARCH SCIENTIST 09/25/2024 12:58 PM ASSISTANT RESEARCH SCIENTIST us Danii Keller [facility] ([place] [place]) LAB BLOOD ORDERABLE S Final Result MELANIACHZ [address] [facility] Department [place] [address] * Differential, auto (09/25/2024 12:51 PM ASSISTANT RESEARCH SCIENTIST) Neutrophil abs 1.9 1.5 - 6.5 K/cumm Imm gran abs 0.0 0.0 - 0.1 K/cumm [facility] Lymphocyte abs 1.7 0.8 - 3.3 K/cumm [facility] Monocyte abs 0.5 0.2 - 0.8 K/cumm [facility] Eosinophil abs 0.1 0.0 - 0.5 K/cumm [facility] Basophil abs 0.0 0.0 - 0.1 K/cumm [facility] Neutrophil pct 45.0 % [facility] Comment: Interpretive Data Percent cell count reference ranges are not reported, since discordance with absolute values may lead to misinterpretation of CBC data. Current Interpretive Data was last revised on 2017. Imm gran pct 0.2 % [facility] Comment: Interpretive Data Percent cell count reference ranges are not reported, since discordance with absolute values may lead to misinterpretation of CBC data. Current Interpretive Data was last revised on 2017. Lymphocyte pct 39.2 % [facility] Comment: Interpretive Data Percent cell count reference ranges are not reported, since discordance with absolute values may lead to misinterpretation of CBC data. Current Interpretive Data was last revised on 2017. Monocyte pct 11.6 % [facility] Comment: Interpretive Data Percent cell count reference ranges are not reported, since discordance with absolute values may lead to misinterpretation of CBC data. Current Interpretive Data was last revised on 2017. Eosinophil pct 3.1 % [facility] Comment: Interpretive Data Percent cell count reference ranges are not reported, since discordance with absolute values may lead to misinterpretation of CBC data. Current Interpretive Data was last revised on 2017. Basophil pct 0.9 % [facility] Comment: Interpretive Data Percent cell count reference ranges are not reported, since discordance with absolute values may lead to misinterpretation of CBC data. Current Interpretive Data was last revised on 2017. Blood 09/25/2024 12:5 1 PM ASSISTANT RESEARCH SCIENTIST 09/25/2024 12:58 PM ASSISTANT RESEARCH SCIENTIST [facility] S Final Result Performing Organization Address [facility] de Phone Number MIGUEL [address] [address] * Thyroid Function [place] (09/25/2024 12:51 PM ASSISTANT RESEARCH SCIENTIST) Pathologist [facility] TSH 1.32 0.30 - 4.20 mcIUnit/mL Blood 09/25/2024 12:5 1 PM ASSISTANT RESEARCH SCIENTIST 09/25/2024 12:58 PM ASSISTANT RESEARCH SCIENTIST Danii Escalante [facility] LAB BLOOD ORDERABLE S Final Result Performing Organization Address [facility] de Phone Number MIGUEL [address] [address] * (ABNORMAL) CBC with auto differential (09/25/2024 12:51 PM ASSISTANT RESEARCH SCIENTIST) [facility] WBC 4.2 3.8 - 9.9 K/cumm Hgb 15.9 13.0 - 17.5 g/dL [facility] Hct 46.9 38.9 - 50.3 % [facility] Plt 129(L) 150 - 400 K/cumm [facility] MPV 11.2 9.1 - 12.3 fL [facility] RBC 5.68 4.30 - 5.80 M/cumm [facility] MCV 82.6 81.3 - 96.4 fL [facility] MCH 28.0 27.1 - 33.3 pg [facility] MCHC 33.9 32.3 - 35.7 g/dL [facility] RDW CV 12.6 11.1 - 14.9 % [facility] RDW SD 37.7 35.7 - 48.1 fL [facility] NRBC abs 0.00 0.00 - 0.01 K/cumm [facility] Blood 09/25/2024 12:5 1 PM ASSISTANT RESEARCH SCIENTIST 09/25/2024 12:58 PM ASSISTANT RESEARCH SCIENTIST Danii Escalante [facility] LAB BLOOD ORDERABLE S Final Result MIGUEL [facility] [place] [address] * (ABNORMAL) Vitamin D 25 hydroxy (09/25/2024 12:51 PM ASSISTANT RESEARCH SCIENTIST) [facility] Vitamin D 25-OH 26.0(L) 30.0 - 80.0 ng/mL Blood 09/25/2024 12:5 1 PM ASSISTANT RESEARCH SCIENTIST 09/25/2024 12:58 PM ASSISTANT RESEARCH SCIENTIST [facility] LAB BLOOD ORDERABLE S Final Result Performing Organization Address [facility] de Phone Number MELANIA[address] [address] * (ABNORMAL) Hemoglobin A1c (09/25/2024 12:51 PM ASSISTANT RESEARCH SCIENTIST) [facility] Hgb A1C 5.8(H) 4.0 - 5.6 % Estimated Average Glucose 120 mg/dL [facility] Comment: The ADA recommends reporting an estimated Average Glucose (eAG) with all Hemoglobin A1c results using the equation derived from a study of 507 normal and diabetic adults. Minority populations were underrepresented and children were not included. (Diabetes Care 31:7954-3085, 2008). The eAG is not equivalent to a fasting glucose. Blood 09/25/2024 12:5 1 PM ASSISTANT RESEARCH SCIENTIST 09/25/2024 12:58 PM ASSISTANT RESEARCH SCIENTIST [facility] LAB BLOOD ORDERABLE S Final Result Performing Organization Address [facility] Co de Phone Number [address] [address] * (ABNORMAL) Lipid panel (09/25/2024 12:51 PM ASSISTANT RESEARCH SCIENTIST) [facility] Cholesterol 211(H) 30 - 199 mg/dL Comment: [...] on 2018. Triglycerides 102 <=149 mg/dL MIGUEL Comment: Interpretive Data Ages < or = [...] on 2018. HDL 56 >=40 mg/dL MIGUEL Comment: Interpretive Data Ages < or = 19 years Acceptable: >45 mg/dL Borderline low: 40-45 mg/dL Low: <40 mg/dL Ages > or = 20 years Desirable: >or= 60 mg/dL Low: <40 mg/dL Literature References: 1. Expert Panel on Integrated Guidelines for Cardiovascular Health and Risk Reduction in Children and Adolescents. Pediatrics 2011;128:S213 2. NCEP Expert Panel. Circulation 2003;110:227 Current Interpretive Data was last revised on 2018. LDL, calculated 137(H) <=129 mg/dL MIGUEL Comment: Interpretive Data Ages < or = 19 years Acceptable: <110 mg/dL Borderline high: 110-129 mg/dL High: >or= 130 mg/dL Ages > or = 20 years Optimal: <100 mg/dL Near optimal: 100-129 mg/dL Borderline high: 130-159 mg/dL High: >160 mg/dL Calculated using the Bravo LDL-C estimating equation. This equation was implemented on 2024. Prior to this date LDL-C was estimated using the Friedewald equation. Literature References: 1. Expert Panel on Integrated Guidelines for Cardiovascular Health and Risk Reduction in Children and Adolescents. Pediatrics 2011;128:S213 2. NCEP Expert Panel. Circulation 2004;110:227 3. Lawrence M et al. CORNELIUS Cardiol. 2020 December 20;5(5):540-548. doi: 10.1001/jamacardio.2020.0013 Current Interpretive Data was last revised on 2024. Non-HDL Cholesterol 155 mg/dL [facility] Comment: Interpretive Data Ages < or = [...] last revised on 2018. Chol/HDL ratio 4 [facility] Blood 09/25/2024 12:5 1 PM ASSISTANT RESEARCH SCIENTIST 09/25/2024 12:58 PM ASSISTANT RESEARCH SCIENTIST Danii Keller [facility] ([place] [place] LAB BLOOD ORDERABLE S Final Result [facility] [address] [facility] Department [place] [address] * Comprehensive metabolic panel (09/25/2024 12:51 PM ASSISTANT RESEARCH SCIENTIST) [facility] Sodium 139 135 - 145 mmol/L Potassium, pl 4.5 3.3 - 4.9 mmol/L [facility] Chloride 101 97 - 110 mmol/L [facility] CO2 27 22 - 32 mmol/L [facility] Anion gap 11 2 - 15 mmol/L [facility] BUN 17 6 - 25 mg/dL [facility] Creatinine 1.04 0.80 - 1.30 mg/dL [facility] Glucose 94 70 - 199 mg/dL [facility] Comment: Interpretive Data Fasting glucose >/= [...] 2022. Calcium 9.7 8.5 - 10.3 mg/dL [facility] Bilirubin, total 0.6 0.1 - 1.2 mg/dL [facility] Protein, pl 7.9 6.5 - 8.5 g/dL [facility] Albumin 4.6 3.5 - 5.0 g/dL [facility] Alk phos 99 40 - 130 Units/L [facility] ALT 45 7 - 55 Units/L [facility] AST 31 10 - 50 Units/L [facility] Blood 09/25/2024 12:5 1 PM ASSISTANT RESEARCH SCIENTIST 09/25/2024 12:58 PM ASSISTANT RESEARCH SCIENTIST Danii Raishiv Keller [facility] [place] LAB BLOOD ORDERABLE S Final Result [facility] [address] [facility] Department [place] [address] * Urinalysis reflex to microscopic and culture Urine, clean voided (09/25/2024 12:46 PM ASSISTANT RESEARCH SCIENTIST) Color, ur Yellow Yellow Clarity, ur Clear Clear [facility] Specific gravity, ur 1.023 1.003 - 1.030 [facility] pH, urine 6.0 [facility] Comment: Interpretive Data U rine pH is affected by diet, medications, systemic acid-base disturbances, and renal tubular function. pH may affect urinary stone formation. For example, urine pH below 6.0 may help reduce the tendency for calcium phosphate stones and pH greater than 6.0 may reduce the tendency for uric acid stone formation. Source: [facility] Current Interpretive Data was last revised on 2017 Protein, ur ql Negative Negative [facility] Glucose, ur ql Negative Negative [facility] Ketones, ur Negative Negative [facility] Bilirubin, ur Negative Negative [facility] Blood, ur Negative Negative [facility] Urobilinogen, ur <2.0 <2.0 mg/dL [facility] Nitrite, ur Negative Negative [facility] Leukocyte esterase, ur Negative Negative [facility] UA reflex comment Reflex conditions for microscopic UA and culture not met. MIGUEL Urine, clean voided 09/25/2024 12:46 PM ASSISTANT RESEARCH SCIENTIST 09/25/2024 1:49 PM ASSISTANT RESEARCH SCIENTIST Narrative MIGUEL - 09/25/2024 2:00 PM ASSISTANT RESEARCH SCIENTIST Urine Collection Method->Clean Catch Danii Keller DNP LAB MICROBIOLOGY - GENERAL ORDERABLES Final Result MIGUEL [address] [facility] Department [place] [address] from Last 3 Months Insurance Care Teams Cloth Coverer Relationship Specialty Start Date End Date Danii Keller DNP [address] [facility] [address] [address] PCP - General Family Medicine 09/18/24
== END 2024-09-27 08:19 | disposition home or self-care (01) ==
LOC: ANHIMG 08:23
PROVIDERS: Visit Provider Nurse Practitioner Family
DX: R10.31 Right lower quadrant pain (principal)
CPT/HCPCS: 78226; A9537

== ENCOUNTER 2024-12-09 17:29 | Emergency (ER) | payer BC, SELFPAY ==
[2024-12-09 17:30] VITALS: BP 149/83; PULSE 82; RESP 16; TEMP 36.4; O2SAT 100
--- OUTSIDE RECORDS SUMMARY | 2024-12-09 17:32 | XMS_ITS | Clinical Summary ---
Author Organization [facility] Address [address] [place] [address] Care Team Providers Care Custom Clothier Name Role Phone Arianna Danii Escalante [facility] Primary Care Provi harper Allergies No known active allergies Medications traZODone (DESYREL) 50 mg tablet TAKE 1 TABLET BY MOUTH EVERY DAY AT DINNER FOR DIFFICULTY SLEEPING 5 Active omeprazole (PriLOSEC) 20 mg capsule Take 1 capsule (20 mg total) by mouth daily 5 Active Active Problems Problem Noted Date Diagnosed Date Sleep disorder 09/23/2024 Assessment & Plan (09/23/2024 8:33 PM MATTRESS AND [employer]OXS[employer] SUPERVISOR): Refer to sleep Medicine Currently on trazodone 50 mg nightly GERD (gastroesophageal reflux disease) Assessment & Plan (09/23/2024 8:32 PM MATTRESS AND BOXS[employer] SUPERVISOR): Chronic and stable on omeprazole 20 mg daily Recurrent major depressive disorder 09/18/2024 Bipolar 1 disorder 09/18/2024 PAULINA (generalized anxiety disorder) 09/18/2024 Right lower quadrant abdominal pain 09/18/2024 Assessment & Plan (09/23/2024 8:31 PM MATTRESS AND BOXS[employer] SUPERVISOR): Chronic Managed by GI at [facility] 09/18/2024 Encounters Date Type Department Care Team Description 12/04/2024 Telephone [facility] [place] [address] Cecelia Eaton RN 11/15/2024 Telephone [facility] [address] [place] [phone] Ana Gauthier RN 11/12/2024 Telephone [facility] [address] [place] [phone] Ana Gauthier RN 09/25/2024 12:45 PM M[employer]ESS AND [employer]OXS[employer] SUPERVISOR Lab [facility] [address] [place] [address] Encounter for vitamin deficiency screening; Encounter for long-term (current) use of medications; Thyroid disorder screen; Lipid screening; Screening for diabetes mellitus 09/18/2024 2:00 PM MATTRESS AND [employer] SUPERVISOR Office Visit [facility] [address] [facility] [address] [place] [phone] Danii Keller DNP Encounter to establish care (Primary Dx); Sleep disorder; Gastroesophageal reflux disease without esophagitis; Right lower quadrant abdominal pain; Screening for diabetes mellitus; Lipid screening; Thyroid disorder screen; Depression screen; Encounter for vitamin deficiency screening; Encounter for long-term (current) use of medications 09/13/2024 Telephone [facility] [address] [place] [phone] Ana Gauthier RN from Last 3 Months Immunizations Immunization Administration Dates Next Due Influenza, Quadrivalent, Spl [...] on file Legal Sex Male 12:01 PM M[employer]ESS [employer] SUPERVISOR Gender Identity Male 09/24/2024 8:42 AM M[employer]ESS AND [employer] SUPERVISOR Sexual Orientation Choose not to disclose 2024 8:42 AM M[employer]ESS [employer] SUPERVISOR Obstetrics History Last Filed Vital Signs Vital Sign Reading Time Taken Comments Blood Pressure 128/80 09/18/2024 1:38 PM M[employer]ESS [employer] SUPERVISOR Pulse 85 09/18/2024 1:38 PM M[employer]ESS [employer] SUPERVISOR Temperature - - Respiratory Rate 18 09/18/2024 1:38 PM M[employer]ESS [employer] SUPERVISOR Oxygen Saturation 98% 09/18/2024 1:38 PM M[employer]ESS [employer] SUPERVISOR Inhaled Oxygen Concentration - - Weight 91.9 kg (202 lb 9.6 oz) 09/18/2024 1:38 P M [employer] SUPERVISOR Height 180.3 cm (5' 11 ) 09/18/2024 1:38 PM M[employer]ESS [employer] SUPERVISOR Body Mass Index 28.26 09/18/2024 1:38 PM M[employer]ESS [employer] SUPERVISOR Plan of Treatment Health Maintenance Due Date [...] Diagnosis Comments EGFR Routine 09/25/2024 12:51 PM M[employer]ESS [employer] SUPERVISOR Encounter for long-term (current) use of medications DIFFERENTIAL AUTO Routine 09/25/2024 12: 51 PM [employer] SUPERVISOR Screening for diabetes mellitus Encounter for long-term (current) use of medications CBC WITH AUTO DIFFERENTIAL Routine 09/25/2024 12:51 PM M[employer] SUPERVISOR Screening for diabetes mellitus Encounter for long-term (current) use of medications COMPREHENSIVE METABOLIC PANEL Routine 09/25/2024 12:51 PM M[employer] SUPERVISOR Encounter for long-term (current) use of medications HEMOGLOBIN A1C Routine 09/25/2024 12:51 PM M[employer] SUPERVISOR Screening for diabetes mellitus Encounter for long-term (current) use of medications LIPID PANEL Routine 09/25/2024 12:51 PM M[employer] SUPERVISOR Lipid screening Encounter for long-term (current) use of medications THYROID FUNCTION CASCADE Routine 09/25/2024 12:51 PM M[employer]ESS [employer] SUPERVISOR Thyroid disorder screen Encounter for long-term (current) use of medications VITAMIN D 25 HYDROXY Routine 09/25/2024 12:51 PM M[employer]ESS [employer] SUPERVISOR Encounter for vitamin deficiency screening Encounter for long-term (current) use of medications URINALYSIS AND REFLEX TO MICROSCOPIC AND CULTURE Routine 09/25/2024 12:46 PM M[employer]ESS [employer] SUPERVISOR Encounter for long-term (current) use of medications from Last 3 Months Results * eGFR (09/25/2024 12:51 PM MATTRESS AND [employer] SUPERVISOR) eGFR >90 >=60 mL/min/1. 73 m2 Comment: [...] of Race in Diagnosing Kidney Disease, JASN 2020). The CKD-EPI equation should not be used for patients with unstable renal function and has not been validated in children and those over 70. Current interpretive data was last reviewed 2021. Blood 09/25/2024 12:5 1 PM M[employer]ESS [employer] SUPERVISOR 09/25/2024 12:58 PM MATTRESS AND [employer] SUPERVISOR us Danii Raishiv Keller [facility] LAB BLOOD ORDERABLE S Final Result [facility] [address] [facility] Department [place] [address] * Differential, auto (09/25/2024 12:51 PM M[employer]ESS AND [employer]OXS[employer] SUPERVISOR) Neutrophil abs 1.9 1.5 - 6.5 K/cumm Imm gran abs 0.0 0.0 - 0.1 K/cumm [facility] Lymphocyte abs 1.7 0.8 - 3.3 K/cumm [facility] Monocyte abs 0.5 0.2 - 0.8 K/cumm [facility] Eosinophil abs 0.1 0.0 - 0.5 K/cumm [facility] Basophil abs 0.0 0.0 - 0.1 K/cumm [facility] Neutrophil pct 45.0 % [facility] Comment: Interpretive Data Percent cell count reference ranges are not reported, since discordance with absolute values may lead to misinterpretation of CBC data. Current Interpretive Data was last revised on 2017. Imm gran pct 0.2 % [facility] Comment: Interpretive Data Percent cell count reference ranges are not reported, since discordance with absolute values may lead to misinterpretation of CBC data. Current Interpretive Data was last revised on 2017. Lymphocyte pct 39.2 % [facility] Comment: Interpretive Data Percent cell count reference ranges are not reported, since discordance with absolute values may lead to misinterpretation of CBC data. Current Interpretive Data was last revised on 2017. Monocyte pct 11.6 % [facility] Comment: Interpretive Data Percent cell count reference ranges are not reported, since discordance with absolute values may lead to misinterpretation of CBC data. Current Interpretive Data was last revised on 2017. Eosinophil pct 3.1 % [facility] Comment: Interpretive Data Percent cell count reference ranges are not reported, since discordance with absolute values may lead to misinterpretation of CBC data. Current Interpretive Data was last revised on 2017. Basophil pct 0.9 % [facility] Comment: Interpretive Data Percent cell count reference ranges are not reported, since discordance with absolute values may lead to misinterpretation of CBC data. Current Interpretive Data was last revised on 2017. Blood 09/25/2024 12:5 1 PM [employer] SUPERVISOR 09/25/2024 12:58 PM M[employer]ESS [employer] SUPERVISOR Danii Raishiv Keller [facility] BLOOD ORDERABLE S Final Result Performing Organization Address City/[facility] [place] [facility]/ZIP Co de Phone Number [address] [place] [address] * Thyroid Function [place] (09/25/2024 12:51 PM MATTRESS AND [employer]OXS[employer]INGS SUPERVISOR) [facility] TSH 1.32 0.30 - 4.20 mcIUnit/mL Blood 09/25/2024 12:5 1 PM M[employer]ESS [employer] SUPERVISOR 09/25/2024 12:58 PM M[employer]ESS AND [employer]SPR[employer] SUPERVISOR Danii Escalante [facility] LAB BLOOD ORDERABLE S Final Result Performing Organization Address City/[facility] [place] [facility] Co de Phone Number [address] [address] * (ABNORMAL) CBC with auto differential (09/25/2024 12:51 PM MATTRESS AND [employer]SPRINGS SUPERVISOR) [facility] WBC 4.2 3.8 - 9.9 K/cumm Hgb 15.9 13.0 - 17.5 g/dL [facility] Hct 46.9 38.9 - 50.3 % [facility] Plt 129(L) 150 - 400 K/cumm [facility] MPV 11.2 9.1 - 12.3 fL [facility] RBC 5.68 4.30 - 5.80 M/cumm [facility] MCV 82.6 81.3 - 96.4 fL [facility] MCH 28.0 27.1 - 33.3 pg [facility] MCHC 33.9 32.3 - 35.7 g/dL [facility] RDW CV 12.6 11.1 - 14.9 % [facility] RDW SD 37.7 35.7 - 48.1 fL [facility] NRBC abs 0.00 0.00 - 0.01 K/cumm [facility] Blood 09/25/2024 12:5 1 PM M[employer] SUPERVISOR 09/25/2024 12:58 PM MATTRESS AND [employer] SUPERVISOR [facility] S Final Result Performing Organization Address [facility] [place] [facility]/ZIP Co de Phone Number [address] [place] [address] * (ABNORMAL) Vitamin D 25 hydroxy (09/25/2024 12:51 PM MATTRESS AND [employer] SUPERVISOR) [facility] Vitamin D 25-OH 26.0(L) 30.0 - 80.0 ng/mL Blood 09/25/2024 12:5 1 PM M[employer]ESS [employer] SUPERVISOR 09/25/2024 12:58 PM M[employer]ESS AND [employer] SUPERVISOR [facility] LAB BLOOD ORDERABLE S Final Result Performing Organization Address [facility]/[place] de Phone Number [address] [place] [address] * (ABNORMAL) Hemoglobin A1c (09/25/2024 12:51 PM MATTRESS AND [employer]SPRINGS SUPERVISOR) Pathologist [facility] Hgb A1C 5.8(H) 4.0 - 5.6 % Estimated Average Glucose 120 mg/dL [facility] Comment: The ADA recommends reporting an estimated Average Glucose (eAG) with all Hemoglobin A1c results using the equation derived from a study of 507 normal and diabetic adults. Minority populations were underrepresented and children were not included. (Diabetes Care 31:0043-3572, 2008). The eAG is not equivalent to a fasting glucose. Blood 09/25/2024 12:5 1 PM M[employer]ESS [employer] SUPERVISOR 09/25/2024 12:58 PM M[employer]ESS AND [employer] SUPERVISOR us Danii Keller [facility] BLOOD ORDERABLE S Final Result [facility] [address] [facility] Department [place] [address] * (ABNORMAL) Lipid panel (09/25/2024 12:51 PM M[employer]ESS AND [employer] SUPERVISOR) Cholesterol 211(H) 30 - 199 mg/dL Comment: [...] last revised on 2018. Chol/HDL ratio 4 [facility] Blood 09/25/2024 12:5 1 PM M[employer]ESS [employer] SUPERVISOR 09/25/2024 12:58 PM M[employer]ESS AND [employer] SUPERVISOR us Danii Keller [facility] BLOOD ORDERABLE S Final Result [facility] [address] [facility] Department of Laboratories [place], [place] [id number] * Comprehensive metabolic panel (09/25/2024 12:51 PM M[employer]ESS AND [employer] SUPERVISOR) Sodium 139 135 - 145 mmol/L Potassium, pl 4.5 3.3 - 4.9 mmol/L [facility] Chloride 101 97 - 110 mmol/L [facility] CO2 27 22 - 32 mmol/L [facility] Anion gap 11 2 - 15 mmol/L [facility] BUN 17 6 - 25 mg/dL [facility] Creatinine 1.04 0.80 - 1.30 mg/dL [facility] Glucose 94 70 - 199 mg/dL [facility] Comment: Interpretive Data Fasting glucose >/= [...] 2022. Calcium 9.7 8.5 - 10.3 mg/dL [facility] Bilirubin, total 0.6 0.1 - 1.2 mg/dL [facility] Protein, pl 7.9 6.5 - 8.5 g/dL [facility] Albumin 4.6 3.5 - 5.0 g/dL [facility] Alk phos 99 40 - 130 Units/L [facility] ALT 45 7 - 55 Units/L [facility] AST 31 10 - 50 Units/L [facility] Blood 09/25/2024 12:5 1 PM [employer] SUPERVISOR 09/25/2024 12:58 PM M[employer] SUPERVISOR us Danii Raishiv Keller [facility] BLOOD ORDERABLE S Final Result [facility] [address] [facility] Department [place] [address] * Urinalysis reflex to microscopic and culture Urine, clean voided (09/25/2024 12:46 PM M[employer]ESS [employer] SUPERVISOR) Color, ur Yellow Yellow Clarity, ur Clear Clear [facility] Specific gravity, ur 1.023 1.003 - 1.030 [facility] pH, urine 6.0 [facility] Comment: Interpretive Data U rine pH is affected by diet, medications, systemic acid-base disturbances, and renal tubular function. pH may affect urinary stone formation. For example, urine pH below 6.0 may help reduce the tendency for calcium phosphate stones and pH greater than 6.0 may reduce the tendency for uric acid stone formation. Source: [facility] Current Interpretive Data was last revised on 2017 Protein, ur ql Negative Negative [facility] Glucose, ur ql Negative Negative [facility] Ketones, ur Negative Negative [facility] Bilirubin, ur Negative Negative [facility] Blood, ur Negative Negative [facility] Urobilinogen, ur <2.0 <2.0 mg/dL [facility] Nitrite, ur Negative Negative [facility] Leukocyte esterase, ur Negative Negative [facility] UA reflex comment Reflex conditions for microscopic UA and culture not met. [facility] Urine, clean voided 09/25/2024 12:46 PM M[employer] SUPERVISOR 09/25/2024 1:49 PM M[employer] SUPERVISOR Narrative [facility] - 09/25/2024 2:00 PM [employer] SUPERVISOR Urine Collection Method->Clean Catch us Danii Keller [facility] MICROBIOLOGY - GENERAL ORDERABLES Final Result [facility] [address] [facility] Department [place] [address] from Last 3 Months Insurance [place] Care Teams Custom Clothier Relationship Specialty Start Date End Date Danii Keller DNP [address] [place] [address] PCP - General Family Medicine 09/18/24
--- OUTSIDE RECORDS SUMMARY | 2024-12-09 17:32 | XMS_ITS | Referral Summary ---
Author Organization [facility] Address [address] [place] [phone] Care Team Providers Care Study Abroad Coordinator Name Role Phone Danii Keller DNP Primary Care Provi harper Encounters Date Type Department Care Team Description 12/04/2024 Telephone [facility] [address] [place] [phone] Cecelia Eaton RN 11/15/2024 Telephone [facility] [address] [place] [phone] Ana Gauthier, BRENNA 11/12/2024 [facility] [address] [place] [phone] Ana Gauthier, BRENNA 09/25/2024 12:45 PM FACILITIES CLERK Lab [facility] Lab [facility] [place] [address] Encounter for vitamin deficiency screening; Encounter for long-term (current) use of medications; Thyroid disorder screen; Lipid screening; Screening for diabetes mellitus 09/18/2024 2:00 PM FACILITIES CLERK Office Visit [facility] [address] [place] [phone] Danii Keller DNP Encounter to establish care (Primary Dx); Sleep disorder; Gastroesophageal reflux disease without esophagitis; Right lower quadrant abdominal pain; Screening for diabetes mellitus; Lipid screening; Thyroid disorder screen; Depression screen; Encounter for vitamin deficiency screening; Encounter for long-term (current) use of medications 09/13/2024 Telephone [facility] [address] [place] [phone] Ana Gauthier RN from Last 3 Months Allergies No known active allergies Medications traZODone (DESYREL) 50 mg tablet TAKE 1 TABLET BY MOUTH EVERY DAY AT DINNER FOR DIFFICULTY SLEEPING Active omeprazole (PriLOSEC) 20 mg capsule Take 1 capsule (20 mg total) by mouth daily Active Active Problems Problem Noted Date Diagnosed Date Sleep disorder 09/23/2024 Assessment & Plan (09/23/2024 8:33 PM FACILITIES CLERK): Refer to sleep Medicine Currently on trazodone 50 mg nightly GERD (gastroesophageal reflux disease) Assessment & Plan (09/23/2024 8:32 PM FACILITIES CLERK): Chronic and stable on omeprazole 20 mg daily Recurrent major depressive disorder 09/18/2024 Bipolar 1 disorder 09/18/2024 PAULINA (generalized anxiety disorder) 09/18/2024 Right lower quadrant abdominal pain 09/18/2024 Assessment & Plan (09/23/2024 8:31 PM FACILITIES CLERK): Chronic Managed by GI at [facility] 09/18/2024 Immunizations Immunization Administration Dates Next Due Influenza, [...] on file Legal Sex Male 12:01 PM FACILITIES CLERK Gender Identity Male 09/24/2024 8:42 AM FACILITIES CLERK Sexual Orientation Choose not to disclose 2024 8:42 AM FACILITIES CLERK Last Filed Vital Signs Vital Sign Reading Time Taken Comments Blood Pressure 128/80 09/18/2024 1:38 PM FACILITIES CLERK Pulse 85 09/18/2024 1:38 PM FACILITIES CLERK Temperature - - Respiratory Rate 18 09/18/2024 1:38 PM FACILITIES CLERK Oxygen Saturation 98% 09/18/2024 1:38 PM FACILITIES CLERK Inhaled Oxygen Concentration - - Weight 91.9 kg (202 lb 9.6 oz) 09/18/2024 1:38 P M FACILITIES CLERK Height 180.3 cm (5' 11 ) 09/18/2024 1:38 PM FACILITIES CLERK Body Mass Index 28.26 09/18/2024 1:38 PM FACILITIES CLERK Plan of Treatment Not on file Procedures Procedure Name Priority Date/Time Associated Diagnosis Comments EGFR Routine 09/25/2024 12:51 PM FACILITIES CLERK Encounter for long-term (current) use of medications DIFFERENTIAL AUTO Routine 09/25/2024 12: 51 PM FACILITIES CLERK Screening for diabetes mellitus Encounter for long-term (current) use of medications CBC WITH AUTO DIFFERENTIAL Routine 09/25/2024 12:51 PM FACILITIES CLERK Screening for diabetes mellitus Encounter for long-term (current) use of medications COMPREHENSIVE METABOLIC PANEL Routine 09/25/2024 12:51 PM FACILITIES CLERK Encounter for long-term (current) use of medications HEMOGLOBIN A1C Routine 09/25/2024 12:51 PM FACILITIES CLERK Screening for diabetes mellitus Encounter for long-term (current) use of medications LIPID PANEL Routine 09/25/2024 12:51 PM FACILITIES CLERK Lipid screening Encounter for long-term (current) use of medications THYROID FUNCTION CASCADE Routine 09/25/2024 12:51 PM FACILITIES CLERK Thyroid disorder screen Encounter for long-term (current) use of medications VITAMIN D 25 HYDROXY Routine 09/25/2024 12:51 PM FACILITIES CLERK Encounter for vitamin deficiency screening Encounter for long-term (current) use of medications URINALYSIS AND REFLEX TO MICROSCOPIC AND CULTURE Routine 09/25/2024 12:46 PM FACILITIES CLERK Encounter for long-term (current) use of medications from Last 3 Months Results * eGFR (09/25/2024 12:51 PM FACILITIES CLERK) eGFR >90 >=60 mL/min/1. 73 m2 Comment: [...] reviewed 2021. Blood 09/25/2024 12:5 1 PM FACILITIES CLERK 09/25/2024 12:58 PM FACILITIES CLERK us Danii Keller [facility] LAB BLOOD ORDERABLE S Final Result [facility]IG[facility] [address] Department [place] [address] * Differential, auto (09/25/2024 12:51 PM FACILITIES CLERK) Neutrophil abs 1.9 1.5 - 6.5 K/cumm Imm gran abs 0.0 0.0 - 0.1 K/cumm [facility] Lymphocyte abs 1.7 0.8 - 3.3 K/cumm [facility] Monocyte abs 0.5 0.2 - 0.8 K/cumm [facility] Eosinophil abs 0.1 0.0 - 0.5 K/cumm [facility] Basophil abs 0.0 0.0 - 0.1 K/cumm [facility] Neutrophil pct 45.0 % [facility] Comment: Interpretive Data Percent cell count reference ranges are not reported, since discordance with absolute values may lead to misinterpretation of CBC data. Current Interpretive Data was last revised on 2017. Imm gran pct 0.2 % [facility] Comment: Interpretive Data Percent cell count reference ranges are not reported, since discordance with absolute values may lead to misinterpretation of CBC data. Current Interpretive Data was last revised on 2017. Lymphocyte pct 39.2 % [facility] Comment: Interpretive Data Percent cell count reference ranges are not reported, since discordance with absolute values may lead to misinterpretation of CBC data. Current Interpretive Data was last revised on 2017. Monocyte pct 11.6 % [facility] Comment: Interpretive Data Percent cell count reference ranges are not reported, since discordance with absolute values may lead to misinterpretation of CBC data. Current Interpretive Data was last revised on 2017. Eosinophil pct 3.1 % [facility] Comment: Interpretive Data Percent cell count reference ranges are not reported, since discordance with absolute values may lead to misinterpretation of CBC data. Current Interpretive Data was last revised on 2017. Basophil pct 0.9 % [facility] Comment: Interpretive Data Percent cell count reference ranges are not reported, since discordance with absolute values may lead to misinterpretation of CBC data. Current Interpretive Data was last revised on 2017. Blood 09/25/2024 12:5 1 PM FACILITIES CLERK 09/25/2024 12:58 PM FACILITIES CLERK us Danii Keller DNP LAB BLOOD ORDERABLE S Final Result MIG[facility]EL [address] Department [place] [address] * Thyroid Function Center Line (09/25/2024 12:51 PM FACILITIES CLERK) [facility] TSH 1.32 0.30 - 4.20 mcIUnit/mL Blood 09/25/2024 12:5 1 PM FACILITIES CLERK 09/25/2024 12:58 PM FACILITIES CLERK Danii Escalante Arianna DNP LAB BLOOD ORDERABLE S Final Result Performing Organization Address City/[facility]/ZIP Co de Phone Number MIGUEL [address] [place] [address] * (ABNORMAL) CBC with auto differential (09/25/2024 12:51 PM FACILITIES CLERK) [facility] WBC 4.2 3.8 - 9.9 K/cumm Hgb 15.9 13.0 - 17.5 g/dL [facility] Hct 46.9 38.9 - 50.3 % [facility] Plt 129(L) 150 - 400 K/cumm [facility] MPV 11.2 9.1 - 12.3 fL [facility] RBC 5.68 4.30 - 5.80 M/cumm [facility] MCV 82.6 81.3 - 96.4 fL [facility] MCH 28.0 27.1 - 33.3 pg [facility] MCHC 33.9 32.3 - 35.7 g/dL [facility] RDW CV 12.6 11.1 - 14.9 % [facility] RDW SD 37.7 35.7 - 48.1 fL [facility] NRBC abs 0.00 0.00 - 0.01 K/cumm [facility] Blood 09/25/2024 12:5 1 PM FACILITIES CLERK 09/25/2024 12:58 PM FACILITIES CLERK Danii Escalante Arianna DNP LAB BLOOD ORDERABLE S Final Result Performing Organization Address City/[facility] Co de Phone Number MIGUEL [address] [place] [address] * (ABNORMAL) Vitamin D 25 hydroxy (09/25/2024 12:51 PM FACILITIES CLERK) [facility] Vitamin D 25-OH 26.0(L) 30.0 - 80.0 ng/mL Blood 09/25/2024 12:5 1 PM FACILITIES CLERK 09/25/2024 12:58 PM FACILITIES CLERK Danii Keller [facility] LAB BLOOD ORDERABLE S Final Result Performing Organization Address [facility] Co de Phone Number MIGUEL [address] [phone] * (ABNORMAL) Hemoglobin A1c (09/25/2024 12:51 PM FACILITIES CLERK) [facility] Hgb A1C 5.8(H) 4.0 - 5.6 % Estimated Average Glucose 120 mg/dL [facility] Comment: The ADA recommends reporting an estimated Average Glucose (eAG) with all Hemoglobin A1c results using the equation derived from a study of 507 normal and diabetic adults. Minority populations were underrepresented and children were not included. (Diabetes Care 31:8930-2244, 2008). The eAG is not equivalent to a fasting glucose. Blood 09/25/2024 12:5 1 PM FACILITIES CLERK 09/25/2024 12:58 PM FACILITIES CLERK Danii Keller [facility] LAB BLOOD ORDERABLE S Final Result Performing Organization Address [facility] Co de Phone Number MELANIA[address] [address] * (ABNORMAL) Lipid panel (09/25/2024 12:51 PM FACILITIES CLERK) [facility] Cholesterol 211(H) 30 - 199 mg/dL Comment: [...] 3. Lawrence Rousseau et al. CORNELIUS Cardiol. 2020 December 20;5(5):540-548. doi: 10.1001/[email or web address].2020.0013 Current Interpretive Data was last revised on 2024. Non-HDL Cholesterol 155 mg/dL [facility] Comment: Interpretive Data Ages < or = [...] last revised on 2018. Chol/HDL ratio 4 [facility] Blood 09/25/2024 12:5 1 PM FACILITIES CLERK 09/25/2024 12:58 PM FACILITIES CLERK Danii Keller [facility] LAB BLOOD ORDERABLE S Final Result [facility] [address] Department [place] [address] * Comprehensive metabolic panel (09/25/2024 12:51 PM FACILITIES CLERK) Sodium 139 135 - 145 mmol/L Potassium, pl 4.5 3.3 - 4.9 mmol/L [facility] Chloride 101 97 - 110 mmol/L [facility] CO2 27 22 - 32 mmol/L [facility] Anion gap 11 2 - 15 mmol/L [facility] BUN 17 6 - 25 mg/dL [facility] Creatinine 1.04 0.80 - 1.30 mg/dL [facility] Glucose 94 70 - 199 mg/dL [facility] Comment: Interpretive Data Fasting glucose >/= 126 [...] 2022. Calcium 9.7 8.5 - 10.3 mg/dL [facility] Bilirubin, total 0.6 0.1 - 1.2 mg/dL [facility] Protein, pl 7.9 6.5 - 8.5 g/dL [facility] Albumin 4.6 3.5 - 5.0 g/dL [facility] Alk phos 99 40 - 130 Units/L [facility] ALT 45 7 - 55 Units/L [facility] AST 31 10 - 50 Units/L [facility] Blood 09/25/2024 12:5 1 PM FACILITIES CLERK 09/25/2024 12:58 PM FACILITIES CLERK us Daniikaye Raishiv Keller [facility] LAB BLOOD ORDERABLE S Final Result [facility] [address] Department [place] [address] * Urinalysis reflex to microscopic and culture Urine, clean voided (09/25/2024 12:46 PM FACILITIES CLERK) Color, ur Yellow Yellow Clarity, ur Clear Clear [facility] Specific gravity, ur 1.023 1.003 - 1.030 [facility] pH, urine 6.0 [facility] Comment: Interpretive Data U rine pH is affected by diet, medications, systemic acid-base disturbances, and renal tubular function. pH may affect urinary stone formation. For example, urine pH below 6.0 may help reduce the tendency for calcium phosphate stones and pH greater than 6.0 may reduce the tendency for uric acid stone formation. Source: [facility] Current Interpretive Data was last revised on 2017 Protein, ur ql Negative Negative [facility] Glucose, ur ql Negative Negative [facility] Ketones, ur Negative Negative [facility] Bilirubin, ur Negative Negative [facility] Blood, ur Negative Negative [facility] Urobilinogen, ur <2.0 <2.0 mg/dL [facility] Nitrite, ur Negative Negative [facility] Leukocyte esterase, ur Negative Negative [facility] UA reflex comment Reflex conditions for microscopic UA and culture not met. [facility] Urine, clean voided 09/25/2024 12:46 PM FACILITIES CLERK 09/25/2024 1:49 PM FACILITIES CLERK Narrative MIGUEL RAYMOND - 09/25/2024 2:00 PM FACILITIES CLERK Urine Collection Method->Clean Catch us Danii Escalante Arianna DNP LAB MICROBIOLOGY - GENERAL ORDERABLES Final Result [facility] [address] [place] [address] from Last 3 Months Insurance [employer] [employer] [place] Care Teams Study Abroad Coordinator Relationship Specialty Start Date End Date Danii Keller DNP [address] [place] [address] PCP - General Family Medicine 09/18/24
--- NOTE | 2024-12-09 18:01 | ED.NECK ---
HPI - Neck Pain/Injury General Chief Complaint: Neck Pain/Injury Stated Complaint: tightness in jaw and neck, tetanus infection Time Seen by Provider: 12/09/24 17:49 History of Present Illness HPI Narrative: Patient was cleaning the gutters 2 days ago, neck his left thumb, wash it out, and a day later noticed that had some discomfort to his left neck and jaw. He is concerned that he may have tetanus, he did have his full vaccine series as a child. He has been using ibuprofen for pain. No focal numbness or weakness or chest pain Related Data Home Medications ?Medication ?Instructions ?Recorded ?Confirmed ?Last Taken ?Type folic acid 1 mg tablet 1 mg PO DAILY 06/21/24 09/14/24 07/03/24 History Allergies Allergy/AdvReac Type Severity Reaction Status Date / Time No Known Allergies Allergy Verified 12/09/24 17:49 Review of Systems Review of Systems: All systems reviewed & are unremarkable except as noted in HPI and below PMFSH Past Medical History Medical History (Updated 12/09/24 @ 17:58 by Sommer Avilez MD) Diarrhea GERD (gastroesophageal reflux disease) Nausea Right lower quadrant pain Social History Social History Smoking status: Never smoker Alcohol intake: current Drinks per week: 8 Substance use type: does not use Living arrangements: with family Spiritual care concerns: No Exam Narrative: EXAMINATION OF ORGAN SYSTEMS/BODY AREAS: Constitutional: Vital signs per nursing GENERAL:[No acute distress, non-toxic appearing.] HEAD: Normal with no signs of head trauma. EYES: EOMI, conjunctiva normal ENT: Normal dentition without any obvious tenderness or abscess, no trismus NECK: No midline tenderness, some soreness to palpation to the left neck LUNGS: Nonlabored breathing. HEART: [Regular rate and rhythm] ABD: [Soft], [nontender to palpation] EXT: Normal range of motion SKIN: Tiny superficial scratch on hand NEURO: [Alert and oriented x 3. No gross focal sensory or strength deficits.] PSYCH: Normal affect Course Vital Signs Vital signs: Vital Signs Temperature 97.6 F 12/09/24 17:30 Pulse Rate 82 12/09/24 17:30 Respiratory Rate 16 12/09/24 17:30 Blood Pressure 149/83 H 12/09/24 17:30 Pulse Oximetry 100 12/09/24 17:30 Oxygen Delivery Room Air 12/09/24 17:30 Temperature 97.6 F 12/09/24 17:30 Pulse Rate 82 12/09/24 17:30 Respiratory Rate 16 12/09/24 17:30 Blood Pressure 149/83 H 12/09/24 17:30 Pulse Oximetry 100 12/09/24 17:30 Oxygen Delivery Room Air 12/09/24 17:30 MDM - Neck Pain/Injury MDM Narrative Medical decision making narrative: Patient was cleaning the gutters 2 days ago, neck his left thumb, wash it out, and a day later noticed that had some discomfort to his left neck and jaw. He is concerned that he may have tetanus, he did have his full vaccine series as a child. He has been using ibuprofen for pain. He is very well-appearing here, not displaying any signs of tetany, no trismus or signs of airway compromise, full range of motion of the neck without pain, very minimal tenderness to the left neck, I did education counselor the patient was very unlikely from tetanus especially since he was having symptoms 1 day after the extremely superficial injury. Will update his tetanus shot have a follow-up with with return precautions. Discharge Plan Discharge Clinical Impression: Neck pain on left side Patient Disposition: Home Condition: Stable Instructions: Acute Neck Pain (ED) Additional Instructions: Please follow up with your PCP and dentist; you can always return to the ER for any further issues. Patient Language: Kiswahili Prescriptions: No Action omeprazole 20 mg capsule,delayed release(DR/EC) 20 mg PO DAILY 30 Days Qty: 30 11RF folic acid 1 mg Tablet 1 mg PO DAILY Follow-up/Referrals: UNKNOWN,DOCTOR [Primary Care Provider] -
--- OUTSIDE RECORDS SUMMARY | 2024-12-09 18:08 | XMS_ITS | Clinical Summary ---
Author Organization [facility] Address [address] [place] [address] Care Team Providers Care Audit Consultant Name Role Phone Arianna Danii Escalante [facility] Primary Care Provi harper Allergies No known active allergies Medications traZODone (DESYREL) 50 mg tablet TAKE 1 TABLET BY MOUTH EVERY DAY AT DINNER FOR DIFFICULTY SLEEPING 5 Active omeprazole (PriLOSEC) 20 mg capsule Take 1 capsule (20 mg total) by mouth daily 5 Active Active Problems Problem Noted Date Diagnosed Date Sleep disorder 09/23/2024 Assessment & Plan (09/23/2024 8:33 PM ACADEMIC GUIDANCE SPECIALIST): Refer to sleep Medicine Currently on trazodone 50 mg nightly GERD (gastroesophageal reflux disease) Assessment & Plan (09/23/2024 8:32 PM ACADEMIC GUIDANCE SPECIALIST): Chronic and stable on omeprazole 20 mg daily Recurrent major depressive disorder 09/18/2024 Bipolar 1 disorder 09/18/2024 PAULINA (generalized anxiety disorder) 09/18/2024 Right lower quadrant abdominal pain 09/18/2024 Assessment & Plan (09/23/2024 8:31 PM ACADEMIC GUIDANCE SPECIALIST): Chronic Managed by GI at [facility] 09/18/2024 Encounters Date Type Department Care Team Description 12/04/2024 Telephone [facility] [place] [address] Cecelia Eaton RN 11/15/2024 Telephone [facility] [address] [place] [phone] Ana Gauthier RN 11/12/2024 Telephone [facility] [address] [place] [phone] Ana Gauthier RN 09/25/2024 12:45 PM ACADEMIC GUIDANCE SPECIALIST Lab [facility] [address] [place] [address] Encounter for vitamin deficiency screening; Encounter for long-term (current) use of medications; Thyroid disorder screen; Lipid screening; Screening for diabetes mellitus 09/18/2024 2:00 PM ACADEMIC GUIDANCE SPECIALIST Office Visit [facility] [address] [place] [phone] Danii Keller DNP Encounter to establish care (Primary Dx); Sleep disorder; Gastroesophageal reflux disease without esophagitis; Right lower quadrant abdominal pain; Screening for diabetes mellitus; Lipid screening; Thyroid disorder screen; Depression screen; Encounter for vitamin deficiency screening; Encounter for long-term (current) use of medications 09/13/2024 Telephone [facility] [address] [place] [phone] Ana Gauthier RN from Last 3 [...] on file Legal Sex Male 12:01 PM ACADEMIC GUIDANCE SPECIALIST Gender Identity Male 09/24/2024 8:42 AM ACADEMIC GUIDANCE SPECIALIST Sexual Orientation Choose not to disclose 2024 8:42 AM ACADEMIC GUIDANCE SPECIALIST Obstetrics History Last Filed Vital Signs Vital Sign Reading Time Taken Comments Blood Pressure 128/80 09/18/2024 1:38 PM ACADEMIC GUIDANCE SPECIALIST Pulse 85 09/18/2024 1:38 PM ACADEMIC GUIDANCE SPECIALIST Temperature - - Respiratory Rate 18 09/18/2024 1:38 PM ACADEMIC GUIDANCE SPECIALIST Oxygen Saturation 98% 09/18/2024 1:38 PM ACADEMIC GUIDANCE SPECIALIST Inhaled Oxygen Concentration - - Weight 91.9 kg (202 lb 9.6 oz) 09/18/2024 1:38 P M ACADEMIC GUIDANCE SPECIALIST Height 180.3 cm (5' 11 ) 09/18/2024 1:38 PM ACADEMIC GUIDANCE SPECIALIST Body Mass Index 28.26 09/18/2024 1:38 PM ACADEMIC GUIDANCE SPECIALIST Plan of Treatment Health Maintenance Due Date [...] Diagnosis Comments EGFR Routine 09/25/2024 12:51 PM ACADEMIC GUIDANCE SPECIALIST Encounter for long-term (current) use of medications DIFFERENTIAL AUTO Routine 09/25/2024 12: 51 PM ACADEMIC GUIDANCE SPECIALIST Screening for diabetes mellitus Encounter for long-term (current) use of medications CBC WITH AUTO DIFFERENTIAL Routine 09/25/2024 12:51 PM ACADEMIC GUIDANCE SPECIALIST Screening for diabetes mellitus Encounter for long-term (current) use of medications COMPREHENSIVE METABOLIC PANEL Routine 09/25/2024 12:51 PM ACADEMIC GUIDANCE SPECIALIST Encounter for long-term (current) use of medications HEMOGLOBIN A1C Routine 09/25/2024 12:51 PM ACADEMIC GUIDANCE SPECIALIST Screening for diabetes mellitus Encounter for long-term (current) use of medications LIPID PANEL Routine 09/25/2024 12:51 PM ACADEMIC GUIDANCE SPECIALIST Lipid screening Encounter for long-term (current) use of medications THYROID FUNCTION CASCADE Routine 09/25/2024 12:51 PM ACADEMIC GUIDANCE SPECIALIST Thyroid disorder screen Encounter for long-term (current) use of medications VITAMIN D 25 HYDROXY Routine 09/25/2024 12:51 PM ACADEMIC GUIDANCE SPECIALIST Encounter for vitamin deficiency screening Encounter for long-term (current) use of medications URINALYSIS AND REFLEX TO MICROSCOPIC AND CULTURE Routine 09/25/2024 12:46 PM ACADEMIC GUIDANCE SPECIALIST Encounter for long-term (current) use of medications from Last 3 Months Results * eGFR (09/25/2024 12:51 PM ACADEMIC GUIDANCE SPECIALIST) eGFR >90 >=60 mL/min/1. 73 m2 Comment: [...] reviewed 2021. Blood 09/25/2024 12:5 1 PM ACADEMIC GUIDANCE SPECIALIST 09/25/2024 12:58 PM ACADEMIC GUIDANCE SPECIALIST us Danii Raishiv Keller [facility] LAB BLOOD ORDERABLE S Final Result [facility] [address] [place] [address] * Differential, auto (09/25/2024 12:51 PM ACADEMIC GUIDANCE SPECIALIST) Neutrophil abs 1.9 1.5 - 6.5 K/cumm Imm gran abs 0.0 0.0 - 0.1 K/cumm [facility] Lymphocyte abs 1.7 0.8 - 3.3 K/cumm [facility] Monocyte abs 0.5 0.2 - 0.8 K/cumm [facility] Eosinophil abs 0.1 0.0 - 0.5 K/cumm [facility] Basophil abs 0.0 0.0 - 0.1 K/cumm [facility] Neutrophil pct 45.0 % [facility] Comment: Interpretive Data Percent cell count reference ranges are not reported, since discordance with absolute values may lead to misinterpretation of CBC data. Current Interpretive Data was last revised on 2017. Imm gran pct 0.2 % [facility] Comment: Interpretive Data Percent cell count reference ranges are not reported, since discordance with absolute values may lead to misinterpretation of CBC data. Current Interpretive Data was last revised on 2017. Lymphocyte pct 39.2 % [facility] Comment: Interpretive Data Percent cell count reference ranges are not reported, since discordance with absolute values may lead to misinterpretation of CBC data. Current Interpretive Data was last revised on 2017. Monocyte pct 11.6 % [facility] Comment: Interpretive Data Percent cell count reference ranges are not reported, since discordance with absolute values may lead to misinterpretation of CBC data. Current Interpretive Data was last revised on 2017. Eosinophil pct 3.1 % [facility] Comment: Interpretive Data Percent cell count reference ranges are not reported, since discordance with absolute values may lead to misinterpretation of CBC data. Current Interpretive Data was last revised on 2017. Basophil pct 0.9 % [facility] Comment: Interpretive Data Percent cell count reference ranges are not reported, since discordance with absolute values may lead to misinterpretation of CBC data. Current Interpretive Data was last revised on 2017. Blood 09/25/2024 12:5 1 PM ACADEMIC GUIDANCE SPECIALIST 09/25/2024 12:58 PM ACADEMIC GUIDANCE SPECIALIST Danii Raishiv Keller [facility] LAB BLOOD ORDERABLE S Final Result Performing Organization Address City/[facility]/ZIP Co de Phone Number [address] [place] [address] * Thyroid Function [place] (09/25/2024 12:51 PM ACADEMIC GUIDANCE SPECIALIST) [facility] TSH 1.32 0.30 - 4.20 mcIUnit/mL Blood 09/25/2024 12:5 1 PM ACADEMIC GUIDANCE SPECIALIST 09/25/2024 12:58 PM ACADEMIC GUIDANCE SPECIALIST Danii Escalante [facility] LAB BLOOD ORDERABLE S Final Result Performing Organization Address City/[facility] Co de Phone Number [address] [address] * (ABNORMAL) CBC with auto differential (09/25/2024 12:51 PM ACADEMIC GUIDANCE SPECIALIST) [facility] WBC 4.2 3.8 - 9.9 K/cumm Hgb 15.9 13.0 - 17.5 g/dL [facility] Hct 46.9 38.9 - 50.3 % [facility] Plt 129(L) 150 - 400 K/cumm [facility] MPV 11.2 9.1 - 12.3 fL [facility] RBC 5.68 4.30 - 5.80 M/cumm [facility] MCV 82.6 81.3 - 96.4 fL [facility] MCH 28.0 27.1 - 33.3 pg [facility] MCHC 33.9 32.3 - 35.7 g/dL [facility] RDW CV 12.6 11.1 - 14.9 % [facility] RDW SD 37.7 35.7 - 48.1 fL [facility] NRBC abs 0.00 0.00 - 0.01 K/cumm [facility] Blood 09/25/2024 12:5 1 PM ACADEMIC GUIDANCE SPECIALIST 09/25/2024 12:58 PM ACADEMIC GUIDANCE SPECIALIST [facility] ORDERABLE S Final Result Performing Organization Address [facility]/ZIP Co de Phone Number [address] [place] [address] * (ABNORMAL) Vitamin D 25 hydroxy (09/25/2024 12:51 PM ACADEMIC GUIDANCE SPECIALIST) [facility] Vitamin D 25-OH 26.0(L) 30.0 - 80.0 ng/mL Blood 09/25/2024 12:5 1 PM ACADEMIC GUIDANCE SPECIALIST 09/25/2024 12:58 PM ACADEMIC GUIDANCE SPECIALIST [facility] LAB BLOOD ORDERABLE S Final Result Performing Organization Address [facility] de Phone Number [address] [place] [address] * (ABNORMAL) Hemoglobin A1c (09/25/2024 12:51 PM ACADEMIC GUIDANCE SPECIALIST) Pathologist [facility] Hgb A1C 5.8(H) 4.0 - 5.6 % Estimated Average Glucose 120 mg/dL [facility] Comment: The ADA recommends reporting an estimated Average Glucose (eAG) with all Hemoglobin A1c results using the equation derived from a study of 507 normal and diabetic adults. Minority populations were underrepresented and children were not included. (Diabetes Care 31:6283-8894, 2008). The eAG is not equivalent to a fasting glucose. Blood 09/25/2024 12:5 1 PM ACADEMIC GUIDANCE SPECIALIST 09/25/2024 12:58 PM ACADEMIC GUIDANCE SPECIALIST us Danii Keller [facility] LAB BLOOD ORDERABLE S Final Result [facility] [address] [place] [address] * (ABNORMAL) Lipid panel (09/25/2024 12:51 PM ACADEMIC GUIDANCE SPECIALIST) Cholesterol 211(H) 30 - 199 mg/dL Comment: [...] 4 [facility] Blood 09/25/2024 12:5 1 PM ACADEMIC GUIDANCE SPECIALIST 09/25/2024 12:58 PM ACADEMIC GUIDANCE SPECIALIST us Danii Keller [facility] LAB BLOOD ORDERABLE S Final Result [facility] [address] Department of [facility] [place], [place] [id number] * Comprehensive metabolic panel (09/25/2024 12:51 PM ACADEMIC GUIDANCE SPECIALIST) Sodium 139 135 - 145 mmol/L Potassium, pl 4.5 3.3 - 4.9 mmol/L [facility] Chloride 101 97 - 110 mmol/L [facility] CO2 27 22 - 32 mmol/L [facility] Anion gap 11 2 - 15 mmol/L [facility] BUN 17 6 - 25 mg/dL [facility] Creatinine 1.04 0.80 - 1.30 mg/dL [facility] Glucose 94 70 - 199 mg/dL [facility] Comment: Interpretive Data Fasting glucose >/= 126 [...] 2022. Calcium 9.7 8.5 - 10.3 mg/dL [facility] Bilirubin, total 0.6 0.1 - 1.2 mg/dL [facility] Protein, pl 7.9 6.5 - 8.5 g/dL [facility] Albumin 4.6 3.5 - 5.0 g/dL [facility] Alk phos 99 40 - 130 Units/L [facility] ALT 45 7 - 55 Units/L [facility] AST 31 10 - 50 Units/L [facility] Blood 09/25/2024 12:5 1 PM ACADEMIC GUIDANCE SPECIALIST 09/25/2024 12:58 PM ACADEMIC GUIDANCE SPECIALIST us Danii Raishiv Keller [facility] LAB BLOOD ORDERABLE S Final Result [facility] [address] [place] [address] * Urinalysis reflex to microscopic and culture Urine, clean voided (09/25/2024 12:46 PM ACADEMIC GUIDANCE SPECIALIST) Color, ur Yellow Yellow Clarity, ur Clear Clear [facility] Specific gravity, ur 1.023 1.003 - 1.030 [facility] pH, urine 6.0 [facility] Comment: Interpretive Data U rine pH is affected by diet, medications, systemic acid-base disturbances, and renal tubular function. pH may affect urinary stone formation. For example, urine pH below 6.0 may help reduce the tendency for calcium phosphate stones and pH greater than 6.0 may reduce the tendency for uric acid stone formation. Source: [facility] Current Interpretive Data was last revised on 2017 Protein, ur ql Negative Negative [facility] Glucose, ur ql Negative Negative [facility] Ketones, ur Negative Negative [facility] Bilirubin, ur Negative Negative [facility] Blood, ur Negative Negative [facility] Urobilinogen, ur <2.0 <2.0 mg/dL [facility] Nitrite, ur Negative Negative [facility] Leukocyte esterase, ur Negative Negative [facility] UA reflex comment Reflex conditions for microscopic UA and culture not met. [facility] Urine, clean voided 09/25/2024 12:46 PM ACADEMIC GUIDANCE SPECIALIST 09/25/2024 1:49 PM ACADEMIC GUIDANCE SPECIALIST Narrative [facility] - 09/25/2024 2:00 PM ACADEMIC GUIDANCE SPECIALIST Urine Collection Method->Clean Catch us Danii Keller [facility] LAB MICROBIOLOGY - GENERAL ORDERABLES Final Result [facility] [address] [place] [address] from Last 3 Months Insurance [place] Care Teams Audit Consultant Relationship Specialty Start Date End Date Danii Keller DNP [address] [address] PCP - General Family Medicine 09/18/24
--- OUTSIDE RECORDS SUMMARY | 2024-12-09 18:08 | XMS_ITS | Referral Summary ---
Author Organization [facility] Address [address] [place] [phone] Care Team Providers Care Gauge And Instrument Inspector Name Role Phone Danii Keller DNP Primary Care Provi harper Encounters Date Type Department Care Team Description 12/04/2024 Telephone [facility] [address] [place] [phone] Cecelia Eaton RN 11/15/2024 Telephone [facility] [address] [place] [phone] Ana Gauthier, BRENNA 11/12/2024 [facility] [address] [place] [phone] Ana Gauthier, BRENNA 09/25/2024 12:45 PM INFORMATION SECURITY ANALYST Lab [facility] [place] [address] Encounter for vitamin deficiency screening; Encounter for long-term (current) use of medications; Thyroid disorder screen; Lipid screening; Screening for diabetes mellitus 09/18/2024 2:00 PM INFORMATION SECURITY ANALYST Office Visit [facility] [address] [place] [phone] Danii Keller DNP Encounter to establish care (Primary Dx); Sleep disorder; Gastroesophageal reflux disease without esophagitis; Right lower quadrant abdominal pain; Screening for diabetes mellitus; Lipid screening; Thyroid disorder screen; Depression screen; Encounter for vitamin deficiency screening; Encounter for long-term (current) use of medications 09/13/2024 Telephone [facility] [address] [place] [phone] Ana Gauthier RN from Last [...] 09/23/2024 Assessment & Plan (09/23/2024 8:33 PM INFORMATION SECURITY ANALYST): Refer to sleep Medicine Currently on trazodone 50 mg nightly GERD (gastroesophageal reflux disease) Assessment & Plan (09/23/2024 8:32 PM INFORMATION SECURITY ANALYST): Chronic and stable on omeprazole 20 mg daily Recurrent major depressive disorder 09/18/2024 Bipolar 1 disorder 09/18/2024 PAULINA (generalized anxiety disorder) 09/18/2024 Right lower quadrant abdominal pain 09/18/2024 Assessment & Plan (09/23/2024 8:31 PM INFORMATION SECURITY ANALYST): Chronic Managed by GI at [facility] 09/18/2024 Immunizations Immunization Administration Dates [...] on file Legal Sex Male 12:01 PM INFORMATION SECURITY ANALYST Gender Identity Male 09/24/2024 8:42 AM INFORMATION SECURITY ANALYST Sexual Orientation Choose not to disclose 2024 8:42 AM INFORMATION SECURITY ANALYST Last Filed Vital Signs Vital Sign Reading Time Taken Comments Blood Pressure 128/80 09/18/2024 1:38 PM INFORMATION SECURITY ANALYST Pulse 85 09/18/2024 1:38 PM INFORMATION SECURITY ANALYST Temperature - - Respiratory Rate 18 09/18/2024 1:38 PM INFORMATION SECURITY ANALYST Oxygen Saturation 98% 09/18/2024 1:38 PM INFORMATION SECURITY ANALYST Inhaled Oxygen Concentration - - Weight 91.9 kg (202 lb 9.6 oz) 09/18/2024 1:38 P M INFORMATION SECURITY ANALYST Height 180.3 cm (5' 11 ) 09/18/2024 1:38 PM INFORMATION SECURITY ANALYST Body Mass Index 28.26 09/18/2024 1:38 PM INFORMATION SECURITY ANALYST Plan of Treatment Not on file Procedures Procedure Name Priority Date/Time Associated Diagnosis Comments EGFR Routine 09/25/2024 12:51 PM INFORMATION SECURITY ANALYST Encounter for long-term (current) use of medications DIFFERENTIAL AUTO Routine 09/25/2024 12: 51 PM INFORMATION SECURITY ANALYST Screening for diabetes mellitus Encounter for long-term (current) use of medications CBC WITH AUTO DIFFERENTIAL Routine 09/25/2024 12:51 PM INFORMATION SECURITY ANALYST Screening for diabetes mellitus Encounter for long-term (current) use of medications COMPREHENSIVE METABOLIC PANEL Routine 09/25/2024 12:51 PM INFORMATION SECURITY ANALYST Encounter for long-term (current) use of medications HEMOGLOBIN A1C Routine 09/25/2024 12:51 PM INFORMATION SECURITY ANALYST Screening for diabetes mellitus Encounter for long-term (current) use of medications LIPID PANEL Routine 09/25/2024 12:51 PM INFORMATION SECURITY ANALYST Lipid screening Encounter for long-term (current) use of medications THYROID FUNCTION CASCADE Routine 09/25/2024 12:51 PM INFORMATION SECURITY ANALYST Thyroid disorder screen Encounter for long-term (current) use of medications VITAMIN D 25 HYDROXY Routine 09/25/2024 12:51 PM INFORMATION SECURITY ANALYST Encounter for vitamin deficiency screening Encounter for long-term (current) use of medications URINALYSIS AND REFLEX TO MICROSCOPIC AND CULTURE Routine 09/25/2024 12:46 PM INFORMATION SECURITY ANALYST Encounter for long-term (current) use of medications from Last 3 Months Results * eGFR (09/25/2024 12:51 PM INFORMATION SECURITY ANALYST) eGFR >90 >=60 mL/min/1. 73 m2 Comment: [...] reviewed 2021. Blood 09/25/2024 12:5 1 PM INFORMATION SECURITY ANALYST 09/25/2024 12:58 PM INFORMATION SECURITY ANALYST us Danii Keller [facility] LAB BLOOD ORDERABLE S Final Result MIGUEL [address] Department [place] [address] * Differential, auto (09/25/2024 12:51 PM INFORMATION SECURITY ANALYST) Neutrophil abs 1.9 1.5 - 6.5 K/cumm Imm gran abs 0.0 0.0 - 0.1 K/cumm [facility] Lymphocyte abs 1.7 0.8 - 3.3 K/cumm [facility] Monocyte abs 0.5 0.2 - 0.8 K/cumm [facility] Eosinophil abs 0.1 0.0 - 0.5 K/cumm [facility] Basophil abs 0.0 0.0 - 0.1 K/cumm [facility] Neutrophil pct 45.0 % [facility] Comment: Interpretive Data Percent cell count reference ranges are not reported, since discordance with absolute values may lead to misinterpretation of CBC data. Current Interpretive Data was last revised on 2017. Imm gran pct 0.2 % [facility] Comment: Interpretive Data Percent cell count reference ranges are not reported, since discordance with absolute values may lead to misinterpretation of CBC data. Current Interpretive Data was last revised on 2017. Lymphocyte pct 39.2 % [facility] Comment: Interpretive Data Percent cell count reference ranges are not reported, since discordance with absolute values may lead to misinterpretation of CBC data. Current Interpretive Data was last revised on 2017. Monocyte pct 11.6 % [facility] Comment: Interpretive Data Percent cell count reference ranges are not reported, since discordance with absolute values may lead to misinterpretation of CBC data. Current Interpretive Data was last revised on 2017. Eosinophil pct 3.1 % [facility] Comment: Interpretive Data Percent cell count reference ranges are not reported, since discordance with absolute values may lead to misinterpretation of CBC data. Current Interpretive Data was last revised on 2017. Basophil pct 0.9 % [facility] Comment: Interpretive Data Percent cell count reference ranges are not reported, since discordance with absolute values may lead to misinterpretation of CBC data. Current Interpretive Data was last revised on 2017. Blood 09/25/2024 12:5 1 PM INFORMATION SECURITY ANALYST 09/25/2024 12:58 PM INFORMATION SECURITY ANALYST us Danii Keller DNP LAB BLOOD ORDERABLE S Final Result MIGUEL [address] Department [place] [address] * Thyroid Function [place] (09/25/2024 12:51 PM INFORMATION SECURITY ANALYST) [facility] TSH 1.32 0.30 - 4.20 mcIUnit/mL Blood 09/25/2024 12:5 1 PM INFORMATION SECURITY ANALYST 09/25/2024 12:58 PM INFORMATION SECURITY ANALYST Danii Escalante Arianna DNP LAB BLOOD ORDERABLE S Final Result Performing Organization Address City/[facility]/ZIP Co de Phone Number MIGUEL [address] [place] [place] [address] * (ABNORMAL) CBC with auto differential (09/25/2024 12:51 PM INFORMATION SECURITY ANALYST) [facility] WBC 4.2 3.8 - 9.9 K/cumm Hgb 15.9 13.0 - 17.5 g/dL [facility] Hct 46.9 38.9 - 50.3 % [facility] Plt 129(L) 150 - 400 K/cumm [facility] MPV 11.2 9.1 - 12.3 fL [facility] RBC 5.68 4.30 - 5.80 M/cumm [facility] MCV 82.6 81.3 - 96.4 fL [facility] MCH 28.0 27.1 - 33.3 pg [facility] MCHC 33.9 32.3 - 35.7 g/dL [facility] RDW CV 12.6 11.1 - 14.9 % [facility] RDW SD 37.7 35.7 - 48.1 fL [facility] NRBC abs 0.00 0.00 - 0.01 K/cumm [facility] Blood 09/25/2024 12:5 1 PM INFORMATION SECURITY ANALYST 09/25/2024 12:58 PM INFORMATION SECURITY ANALYST Danii Escalante Arianna DNP LAB BLOOD ORDERABLE S Final Result Performing Organization Address City/[facility] Co de Phone Number MIGUEL [address] [place] [address] * (ABNORMAL) Vitamin D 25 hydroxy (09/25/2024 12:51 PM INFORMATION SECURITY ANALYST) [facility] Vitamin D 25-OH 26.0(L) 30.0 - 80.0 ng/mL Blood 09/25/2024 12:5 1 PM INFORMATION SECURITY ANALYST 09/25/2024 12:58 PM INFORMATION SECURITY ANALYST Danii Keller [facility] LAB BLOOD ORDERABLE S Final Result Performing Organization Address [facility] Co de Phone Number MIGUEL [address] [address] * (ABNORMAL) Hemoglobin A1c (09/25/2024 12:51 PM INFORMATION SECURITY ANALYST) [facility] Hgb A1C 5.8(H) 4.0 - 5.6 % Estimated Average Glucose 120 mg/dL MIGUEL Comment: The ADA recommends reporting an estimated Average Glucose (eAG) with all Hemoglobin A1c results using the equation derived from a study of 507 normal and diabetic adults. Minority populations were underrepresented and children were not included. (Diabetes Care 31:4768-4173, 2008). The eAG is not equivalent to a fasting glucose. Blood 09/25/2024 12:5 1 PM INFORMATION SECURITY ANALYST 09/25/2024 12:58 PM INFORMATION SECURITY ANALYST Danii Keller [facility] LAB BLOOD ORDERABLE S Final Result Performing Organization Address [facility] Co de Phone Number MELANIA[address] [address] * (ABNORMAL) Lipid panel (09/25/2024 12:51 PM INFORMATION SECURITY ANALYST) [facility] Cholesterol 211(H) 30 - 199 mg/dL [...] revised on 2024. Non-HDL Cholesterol 155 mg/dL [facility] Comment: Interpretive Data Ages < or = [...] last revised on 2018. Chol/HDL ratio 4 [facility] Blood 09/25/2024 12:5 1 PM INFORMATION SECURITY ANALYST 09/25/2024 12:58 PM INFORMATION SECURITY ANALYST Danii Keller [facility] LAB BLOOD ORDERABLE S Final Result [facility] [address] Department [place] [address] * Comprehensive metabolic panel (09/25/2024 12:51 PM INFORMATION SECURITY ANALYST) Sodium 139 135 - 145 mmol/L Potassium, pl 4.5 3.3 - 4.9 mmol/L [facility] Chloride 101 97 - 110 mmol/L [facility] CO2 27 22 - 32 mmol/L [facility] Anion gap 11 2 - 15 mmol/L [facility] BUN 17 6 - 25 mg/dL [facility] Creatinine 1.04 0.80 - 1.30 mg/dL [facility] Glucose 94 70 - 199 mg/dL [facility] Comment: Interpretive Data Fasting glucose >/= [...] Calcium 9.7 8.5 - 10.3 mg/dL [facility] Bilirubin, total 0.6 0.1 - 1.2 mg/dL [facility] Protein, pl 7.9 6.5 - 8.5 g/dL [facility] Albumin 4.6 3.5 - 5.0 g/dL [facility] Alk phos 99 40 - 130 Units/L [facility] ALT 45 7 - 55 Units/L [facility] AST 31 10 - 50 Units/L [facility] Blood 09/25/2024 12:5 1 PM INFORMATION SECURITY ANALYST 09/25/2024 12:58 PM INFORMATION SECURITY ANALYST us Daniikaye Raishiv Keller [facility] LAB BLOOD ORDERABLE S Final Result [facility] [address] Department [place] [address] * Urinalysis reflex to microscopic and culture Urine, clean voided (09/25/2024 12:46 PM INFORMATION SECURITY ANALYST) Color, ur Yellow Yellow Clarity, ur Clear Clear [facility] Specific gravity, ur 1.023 1.003 - 1.030 [facility] pH, urine 6.0 [facility] Comment: Interpretive Data U rine pH is affected by diet, medications, systemic acid-base disturbances, and renal tubular function. pH may affect urinary stone formation. For example, urine pH below 6.0 may help reduce the tendency for calcium phosphate stones and pH greater than 6.0 may reduce the tendency for uric acid stone formation. Source: [facility] Current Interpretive Data was last revised on 2017 Protein, ur ql Negative Negative [facility] Glucose, ur ql Negative Negative [facility] Ketones, ur Negative Negative [facility] Bilirubin, ur Negative Negative [facility] Blood, ur Negative Negative [facility] Urobilinogen, ur <2.0 <2.0 mg/dL [facility] Nitrite, ur Negative Negative [facility] Leukocyte esterase, ur Negative Negative [facility] UA reflex comment Reflex conditions for microscopic UA and culture not met. [facility] Urine, clean voided 09/25/2024 12:46 PM INFORMATION SECURITY ANALYST 09/25/2024 1:49 PM INFORMATION SECURITY ANALYST Narrative MIGUEL RAYMOND - 09/25/2024 2:00 PM INFORMATION SECURITY ANALYST Urine Collection Method->Clean Catch us Danii Escalante Arinana DNP LAB MICROBIOLOGY - GENERAL ORDERABLES Final Result [facility]EL [address] Department [place] [address] from Last 3 Months Insurance [place] [employer] [employer] [place] Care Teams Gauge And Instrument Inspector Relationship Specialty Start Date End Date Danii Keller DNP [address] [place] [address] PCP - General Family Medicine 09/18/24
[2024-12-09] MEDS: TETANUS,DIPHTHERIA,AC PERTUSSIS ADULT (0.5 ML) BOOSTRIX IM (18:32)
[2024-12-09 18:36] VITALS: BP 134/90; PULSE 74; RESP 18; TEMP 36.9; O2SAT 100
== END 2024-12-09 18:38 | disposition home or self-care (01) ==
LOC: ANHED 18:06
PROVIDERS: Emergency Provider Emergency Medicine
DX: M54.2 Cervicalgia (principal); Z23 Encounter for immunization; K21.9 Gastro-esophageal reflux disease without esophagitis
CPT/HCPCS: 90471; 90715; 99282

== ENCOUNTER 2025-06-26 15:47 | Emergency (ER) | payer BC, SELFPAY ==
[2025-06-26 16:19] VITALS: BP 135/90; PULSE 83; RESP 16; TEMP 36.6; O2SAT 100
--- NOTE | 2025-06-26 17:55 | ED.RECABL ---
HPI - Recheck/Abnormal Lab/Rx General Chief Complaint: Recheck/Abnormal Lab/Rx Stated Complaint: procedure recheck Time Seen by Provider: 06/26/25 17:08 History of Present Illness HPI narrative: Patient is a 25-year-old male who presents to the ER with concerns of an incision infection. He reports he had a venogram at an outside hospital on Tuesday, 2 days ago. Patient reports his right groin site is a little more tender it is in his left groin site. He also reports he thinks his right thigh groin site has opened more than the other one. Patient denies any fevers, excessive redness to the site, warmth to the touch, purulence drainage, or acute abdominal pain. He endorses a history of MRSA years ago. Patient also endorses a history of chronic abdominal pain which is why he had the venogram. Related Data Home Medications ?Medication ?Instructions ?Recorded ?Confirmed ?Last Taken ?Type folic acid 1 mg tablet 1 mg PO DAILY 06/21/24 09/14/24 07/03/24 History Allergies Allergy/AdvReac Type Severity Reaction Status Date / Time No Known Allergies Allergy Verified 06/26/25 17:08 Review of Systems Review of Systems: All systems reviewed & are unremarkable except as noted in HPI and below PMFSH Past Medical History Medical History Diarrhea GERD (gastroesophageal reflux disease) Nausea Right lower quadrant pain Social History Social History Alcohol intake: current Drinks per week: 8 Substance use type: does not use Living arrangements: with family Spiritual care concerns: No Exam Narrative: GENERAL: Well appearing, well-nourished, non-toxic, in no acute distress. HEAD: Normocephalic, atraumatic. NECK: Supple. No adenopathy, no masses. RESPIRATORY: Airway patent, respirations nonlabored. Clear to auscultation bilaterally, no rales, rhonchi, wheezing. CARDIOVASCULAR: Regular rate and rhythm without murmurs, rubs, or gallops. Peripheral pulses 2+ and equal bilaterally. ABDOMINAL: Soft, nontender, nondistended, no hepatosplenomegaly. Normoactive BS. MUSCULOSKELETAL: Moves all extremities. Strength/ROM intact without gross deformities. SKIN: Warm, dry, normal color. No rashes, approximately 1/2 cm bilateral inguinal region incisions- no purulent drainage, no redness around site, both incisions approximated, very minimal amount of subcutaneous tissue exposed with no associated drainage or edema NEURO: A&O X3. Speech clear. Cranial nerves II-XII intact. No ataxic movements. PSYCHIATRIC: Appropriate mood and affect. Normal interaction. Course Vital Signs Vital signs: Vital Signs Temperature 36.6 C 06/26/25 16:19 Pulse Rate 83 06/26/25 16:19 Respiratory Rate 16 06/26/25 16:19 Blood Pressure 135/90 06/26/25 16:19 Pulse Oximetry 100 06/26/25 16:19 Temperature 36.6 C 06/26/25 16:19 Pulse Rate 83 06/26/25 16:19 Respiratory Rate 16 06/26/25 16:19 Blood Pressure 135/90 06/26/25 16:19 Pulse Oximetry 100 06/26/25 16:19 MDM - Recheck/Abnormal Lab/Rx MDM Narrative Medical decision making narrative: Patient is a 25-year-old male who presents to the ER with concerns of an incision infection. He reports he had a venogram at an outside hospital on Tuesday, 2 days ago. Patient reports his right groin site is a little more tender it is in his left groin site. He also reports he thinks his right thigh groin site has opened more than the other one. Patient denies any fevers, excessive redness to the site, warmth to the touch, purulence drainage, or acute abdominal pain. He endorses a history of MRSA years ago. Patient also endorses a history of chronic abdominal pain which is why he had the venogram. Patient Education/Shared MDM: Patient's examination is very reassuring. Neither of his inguinal sites appear infected. There is no visible drainage even with palpation. Both incision sites appear to be healing nicely and are well approximated. No warmth, redness, or edema at the sites. Patient provided with reassurance. He will be given mupirocin cream to put on the sites up to 3 times a day. Patient strongly advised to follow-up with his surgeon if symptoms become worse. He will be discharged home with a prescription for Mupirocin. Strict return precautions provided. Patient verbalized understanding and is in agreement with plan. Vital signs stable at time of discharge. All questions answered. Differential Diagnosis Differential diagnosis: Likely other (Inguinal fold infection, groin hematoma, complications from procedure) Discharge Plan Discharge Clinical Impression: Healing wound, Healing wound present on both lower extremities Patient Disposition: Home Condition: Stable Instructions: Antibiotic Form Additional Instructions: Your exam was very reassuring that your incisional sites are healing well. Please return to the ER with any worsening symptoms. Follow-up with your surgeon as soon as possible for further evaluation. Take all medications as prescribed, including regularly scheduled medications. You may place Mupirocin cream on the site up to 3 times a day. WAtch for signs of infection including, significant redness around the site, increased pain, pus from the incision site, or excessive swelling. Patient Language: Urdu Prescriptions: New mupirocin [Centany] 2 % ointment 1 applic topical TID Qty: 22 0RF No Action omeprazole 20 mg capsule,delayed release(DR/EC) 20 mg PO DAILY 30 Days Qty: 30 11RF folic acid 1 mg Tablet 1 mg PO DAILY Follow-up/Referrals: UNKNOWN,DOCTOR [Primary Care Provider] Time of Disposition: 18:06
[2025-06-26] MEDS: MUPIROCIN 2% OINT 22 GM TUBE 1 APPLIC TOPICAL (18:11)
[2025-06-26 18:14] VITALS: BP 139/87; PULSE 75; RESP 16; O2SAT 99
--- OUTSIDE RECORDS SUMMARY | 2025-06-27 15:05 | XMS_ITS | Clinical Summary ---
Author Organization [facility] Address [address] [place] [address] Care Team Providers Care Histopath Tech Name Role Phone Danii Keller [facility] Primary Care Provi harper Allergies No known active allergies Medications traZODone (DESYREL) 50 mg tablet TAKE 1 TABLET BY MOUTH EVERY DAY AT DINNER FOR DIFFICULTY SLEEPING 5 Active omeprazole (PriLOSEC) 20 mg capsule Take 1 capsule (20 mg total) by mouth daily 5 Active Active Problems Problem Noted Date Diagnosed Date Sleep disorder 09/23/2024 Assessment & Plan (09/23/2024 8:33 PM FOOD TRAY ASSEMBLER): Refer to sleep Medicine Currently on trazodone 50 mg nightly GERD (gastroesophageal reflux disease) Assessment & Plan (09/23/2024 8:32 PM FOOD TRAY ASSEMBLER): Chronic and stable on omeprazole 20 mg daily Recurrent major depressive disorder 09/18/2024 Bipolar 1 disorder 09/18/2024 PAULINA (generalized anxiety disorder) 09/18/2024 Right lower quadrant abdominal pain 09/18/2024 Assessment & Plan (09/23/2024 8:31 PM FOOD TRAY ASSEMBLER): Chronic Managed by GI at [facility] Scoliosis 09/18/2024 Immunizations Immunization Administration Dates Next Due [...] on file Legal Sex Male 12:01 PM FOOD TRAY ASSEMBLER Gender Identity Male 09/24/2024 8:42 AM FOOD TRAY ASSEMBLER Sexual Orientation Choose not to disclose 2024 8:42 AM FOOD TRAY ASSEMBLER Last Filed Vital Signs Vital Sign Reading Time Taken Comments Blood Pressure 128/80 09/18/2024 1:38 PM FOOD TRAY ASSEMBLER Pulse 85 09/18/2024 1:38 PM FOOD TRAY ASSEMBLER Temperature - - Respiratory Rate 18 09/18/2024 1:38 PM FOOD TRAY ASSEMBLER Oxygen Saturation 98% 09/18/2024 1:38 PM FOOD TRAY ASSEMBLER Inhaled Oxygen Concentration - - Weight 91.9 kg (202 lb 9.6 oz) 09/18/2024 1:38 P M FOOD TRAY ASSEMBLER Height 180.3 cm (5' 11) 09/18/2024 1:38 PM FOOD TRAY ASSEMBLER Body Mass Index 28.26 09/18/2024 1:38 PM FOOD TRAY ASSEMBLER Plan of Treatment Health Maintenance Due Date Last Done Comments Hepatitis C Screening 2000 DTaP/Tdap/Td Vaccine (1 - Tdap) 02/21/2011 Varicella Vaccines (1 of 2 - 13+ 2-dose series) 02/21/2013 HPV Vaccines (1 - Male 3-dos e series) 02/21/2015 Hepatitis B Screening 02/21/2018 Regular Well Visit/Exam 18-64 02/21/2018 Influenza Vaccine (#1) 2025 08/02/2023 Depression Screening 09/18/2025 09/18/2024 Pneumococcal vaccine <65 Aged Out No longer eligible based on patient's age to complete this topic Insurance [place] Care Teams Histopath Tech Relationship Specialty Start Date End Date Danii Keller DNP [address] [place] [address] PCP - General Family Medicine 09/18/24
--- OUTSIDE RECORDS SUMMARY | 2025-06-27 15:27 | XMS_ITS | Clinical Summary ---
Author Organization [facility] Address [address] [place] [address] Care Team Providers Care New Media Strategist Name Role Phone Danii Keller [facility] Primary Care Provi harper Allergies No known active allergies Medications traZODone (DESYREL) 50 mg tablet TAKE 1 TABLET BY MOUTH EVERY DAY AT DINNER FOR DIFFICULTY SLEEPING 5 Active omeprazole (PriLOSEC) 20 mg capsule Take 1 capsule (20 mg total) by mouth daily 5 Active Active Problems Problem Noted Date Diagnosed Date Sleep disorder 09/23/2024 Assessment & Plan (09/23/2024 8:33 PM SUPERINTENDENT MAINTENANCE): Refer to sleep Medicine Currently on trazodone 50 mg nightly GERD (gastroesophageal reflux disease) Assessment & Plan (09/23/2024 8:32 PM SUPERINTENDENT MAINTENANCE): Chronic and stable on omeprazole 20 mg daily Recurrent major depressive disorder 09/18/2024 Bipolar 1 disorder 09/18/2024 PAULINA (generalized anxiety disorder) 09/18/2024 Right lower quadrant abdominal pain 09/18/2024 Assessment & Plan (09/23/2024 8:31 PM SUPERINTENDENT MAINTENANCE): Chronic Managed by GI at [facility] Scoliosis 09/18/2024 Immunizations Immunization Administration Dates Next [...] on file Legal Sex Male 12:01 PM SUPERINTENDENT MAINTENANCE Gender Identity Male 09/24/2024 8:42 AM SUPERINTENDENT MAINTENANCE Sexual Orientation Choose not to disclose 2024 8:42 AM SUPERINTENDENT MAINTENANCE Last Filed Vital Signs Vital Sign Reading Time Taken Comments Blood Pressure 128/80 09/18/2024 1:38 PM SUPERINTENDENT MAINTENANCE Pulse 85 09/18/2024 1:38 PM SUPERINTENDENT MAINTENANCE Temperature - - Respiratory Rate 18 09/18/2024 1:38 PM SUPERINTENDENT MAINTENANCE Oxygen Saturation 98% 09/18/2024 1:38 PM SUPERINTENDENT MAINTENANCE Inhaled Oxygen Concentration - - Weight 91.9 kg (202 lb 9.6 oz) 09/18/2024 1:38 P M SUPERINTENDENT MAINTENANCE Height 180.3 cm (5' 11) 09/18/2024 1:38 PM SUPERINTENDENT MAINTENANCE Body Mass Index 28.26 09/18/2024 1:38 PM SUPERINTENDENT MAINTENANCE Plan of Treatment Health Maintenance Due Date [...] [place] Care Teams New Media Strategist Relationship Specialty Start Date End Date Danii Keller DNP [address] [place] [address] PCP - General Family Medicine 09/18/24
--- OUTSIDE RECORDS SUMMARY | 2025-06-27 15:27 | XMS_ITS | Patient Health Record ---
Author Organization [facility] Address [address] [place] [address] Care Team Providers Care Radio Program Director Name Role Phone COLE FUNES Unavailable [phone] Allergies No Known Allergies Reason For Referral No Information Medications Medication SIG (Take, Route, Fr equency, Duration) Notes Start Date End Date Status Dicyclomine HCl 20 MG 1 tablet Orally Th ree times a day Active Omeprazole 20 MG 1 capsule 30 minutes before morning meal Orally Once a day A ctive Social History Tobacco Use: Social History Observation Description Date Details (start date - stop date) Never Smoker NA - NA (OLD FORM) smoking/tobacco Use Question Answer Notes Are you a nonsmoker Section Notes: Single, No ETOH Single, No ETOH Problems Problem Type SNOMED Code ICD Code Onset Dates Problem Status W/U Status Risk Notes Problem Tension-type headache (424511952) Tension-type headache, unspecified, not intractable (G44.209) Active confirmed Problem Polyneuropathy (41462642) Polyneuropathy, unspecified (G62.9) Active confirmed Problem Cervicalgia (79592017) Cervicalgia (M54.2) Active confirmed Problem Myositis (67429166) Other myositis, left shoulder (M60.812) Active confirmed Problem Spasm (13336677) Contracture of muscle, left shoulder (M62.412) Active confirmed Plan Of Treatment No Information Insurance Providers Payer Name Payer Address Payer Phone Subscriber Number Group Number Insured Name Patient Relationship to Insured Coverage Start Date Coverage End Date [facility] [address] [facility] [place] [address] [id number] Seven Kwong Self - patient is the insured Medical (General) History Medical History History ICD Code As above Surgical History Surgery Date(Month/Year)
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
== END 2025-06-26 18:15 | disposition home or self-care (01) ==
PROVIDERS: Emergency Provider Registered Nurse
DX: Z48.817 Encounter for surgical aftercare following surgery on the skin and subcutaneous tissue (principal); K21.9 Gastro-esophageal reflux disease without esophagitis; Z86.14 Personal history of Methicillin resistant Staphylococcus aureus infection
CPT/HCPCS: 99283; A9270